=== PATIENT | female | born 1935 | race Two or more races ===

== ENCOUNTER 2018-09-04 00:44 | Inpatient (IN) | payer MEDICARE, OTHER ==
[2018-09-04] VITALS (9 sets, daily range): BP systolic 90–113; BP diastolic 50–76
[~2018-09-04] VITALS: Ht 154.9 cm; Wt 69.5 kg
[~2018-09-04 00:44] MED LIST: AMLODIPINE BESYL5 MG ORAL; ASPIRIN81 MG ORAL; ATORVASTATIN CA20 MG ORAL; AUGMENTIN 875-1 EAC1 ORAL; AZOPT10 ML OP; BRIMONIDINE TART5 ML BOTH EYES; LASIX20 M1 ORAL; LATANOPROST2.5 ML BOTH EYES; LEVOTHYROXINE100 MCG ORAL; PRANDIN2 MG ORAL
--- NOTE | 2018-09-04 00:45 | Emergency Room Report ---
History of Present Illness General Chief Complaint: Generalized Weakness Source: Patient, Family Member Present Illness HPI Patient is an 83-year-old female presented after increased generalized weakness. Patient noted to have prior history of diabetes as well as end-stage renal disease. Patient is normally dialyzed Monday and Monday. Patient was noted to have increased lethargy was noted to have markedly elevated blood sugar by EMS. Patient is was last dialyzed on Monday. She was noted to have increased nonproductive cough Allergies: Coded Allergies: PENICILLINS (Verified Allergy, Intermediate, itching/rash., 10/23/14) Uncoded Allergies: " some kind of antibiotic " (Allergy, Intermediate, generalized itching, ) CODEIN (Allergy, Unknown, 09/04/18) Patient History Past Medical History: see triage record Last Menstrual Period: 4 decades ago Now: No Reviewed Nursing Documentation: PMH: Agreed; PSxH: Agreed Review of Systems All Other Systems: negative except mentioned in HPI Physical Exam Vital Signs Date Time Temp Pulse Resp B/P (MAP) Pulse Ox O2 Delivery O2 Flow Rate FiO2 09/04/18 00:38 99.0 94 16 113/76 97 Room Air Sp02 EP Interpretation: reviewed, normal General Appearance: normal inspection, alert, Chronically Ill Head: atraumatic Eyes: bilateral eye conjunctivae pale ENT: normal ENT inspection, normal voice, dry mucus membranes Neck: normal inspection, no bony tend Respiratory: normal inspection, no respiratory distress, no retraction, wheezing Cardiovascular #1: regular rate, rhythm, no edema Gastrointestinal: normal inspection, normal bowel sounds, non tender, soft, no guarding, no hernia Genitourinary: no CVA tenderness Musculoskeletal: normal inspection, back normal, normal range of motion Neurologic: normal inspection, alert, oriented x3, responsive, speech normal Psychiatric: normal inspection, judgement/insight normal, mood/affect normal Skin: normal inspection, normal color, no rash Procedures Critical Care Time Critical Care Time Patient had a critical medical condition which untreated could potentially result in life or limb threatening injury. Total critical care time excluding procedures approximately 45 minutes. Medical Decision Making Diagnostic Impression: Primary Impression: Sepsis Additional Impressions: ESRD (end stage renal disease) Pleural effusion Uncontrolled diabetes mellitus ER Course Patient presented for generalized weakness. Differential diagnosis included was not limited to anemia, urinary tract infection, electrolyte abnormality, hypothyroidism, myocardial infarction, myasthenia gravis, dehydration, among others. Because of complexity of patient's case laboratory testing and imaging studies were ordered. Patient laboratory studies are notable for normal potassium as well as elevated white blood count and some evidence of anemia. Patient was started on IV antibiotics. patient was noted to have history of chronic renal disease and is currently on dialysis. Patient was noted to have initial hypotension as well as a markedly elevated blood sugar. Patient was started on IV fluids due to hypotension with some improvement. Patient was noted to be markedly lethargic initially and seem to have some improvement after IV hydration. Patient was noted to have chest x-ray with small right- sided pleural effusion and mild cardiomegaly. There appear to be some bilateral infiltrate versus chronic lung disease. Patient was given IV Levaquin due to antibiotic allergies she does not given additional antibiotics at this time. Dr. Garry Correia was contacted for inpatient management due to capitated physician for [facility]. Labs Test 09/04/18 00:40 09/04/18 03:30 09/04/18 09:50 White Blood Count 15.6 K/UL (4.8-10.8) Red Blood Count 3.96 M/UL (4.20-5.40) Hemoglobin 12.4 G/DL (12.0-16.0) Hematocrit 38.2 % (37.0-47.0) Mean Corpuscular Volume 96 FL (80-99) Mean Corpuscular Hemoglobin 31.3 PG (27.0-31.0) Mean Corpuscular Hemoglobin Concent 32.4 G/DL (32.0-36.0) Red Cell Distribution Width 14.2 % (11.6-14.8) Platelet Count 108 K/UL (150-450) Mean Platelet Volume 9.3 FL (6.5-10.1) Neutrophils (%) (Auto) % (45.0-75.0) Lymphocytes (%) (Auto) % (20.0-45.0) Monocytes (%) (Auto) % (1.0-10.0) Eosinophils (%) (Auto) % (0.0-3.0) Basophils (%) (Auto) % (0.0-2.0) Sodium Level 133 MMOL/L (136-145) Potassium Level 4.7 MMOL/L (3.5-5.1) Chloride Level 95 MMOL/L (98-107) Carbon Dioxide Level 27 MMOL/L (21-32) Anion Gap 11 mmol/L (5-15) Blood Urea Nitrogen 79 mg/dL (7-18) Creatinine 6.0 MG/DL (0.55-1.30) Estimat Glomerular Filtration Rate mL/min (>60) Glucose Level 477 MG/DL (74-106) Calcium Level 8.8 MG/DL (8.5-10.1) Total Bilirubin 1.4 MG/DL (0.2-1.0) Direct Bilirubin 1.0 MG/DL (0.0-0.3) Aspartate Amino Transf (AST/SGOT) 43 U/L (15-37) Alanine Aminotransferase (ALT/SGPT) 19 U/L (12-78) Alkaline Phosphatase 204 U/L (46-116) Total Creatine Kinase 245 U/L (26-308) Creatine Kinase MB 2.1 NG/ML (0.0-3.6) Creatine Kinase MB Relative Index 0.8 Pro-B-Type Natriuretic Peptide 05607 pg/mL (0-125) Total Protein 8.8 G/DL (6.4-8.2) Albumin 2.4 G/DL (3.4-5.0) Globulin 6.4 g/dL Albumin/Globulin Ratio 0.4 (1.0-2.7) Lipase 243 U/L (73-393) Troponin I 0.179 ng/mL (0.000-0.056) Lactic Acid Level 1.10 mmol/L (0.66-2.22) EKG Diagnostic Results Rate: normal Rhythm: NSR ST Segments: no acute changes Last Vital Signs Date Time Temp Pulse Resp B/P (MAP) Pulse Ox O2 Delivery O2 Flow Rate FiO2 09/04/18 00:38 99.0 94 16 113/76 97 Room Air Status: improved Disposition: ADMITTED INPATIENT Condition: Selvin Robertson MD Sep 04, 2018 00:44
--- NOTE | 2018-09-04 01:15 | NUR ---
ER Nurse Note: Pt BIBA from home c/o generalziaed weakness. Per EMS, pt has dialysis T,Th,S; AV fistula on left arm. Pt a&ox4, on room air, BP 96/69, no signs of distress. Pt has a non productive cough, has range of motion in extremities. No skin breakdown, no fever. ERMD at pt side; will continue to montior.
[2018-09-04 01:28] LABS: HEMATOCRIT 38.2 % (37.0-47.0); HEMOGLOBIN 12.4 G/DL (12.0-16.0); MEAN CORPUSCULAR VOLUME 96 FL (80-99); PLATELET COUNT 108 K/UL (150-450); RED BLOOD COUNT 3.96 M/UL (4.20-5.40); RED CELL DISTRIBUTION WIDTH 14.2 % (11.6-14.8); WHITE BLOOD COUNT 15.6 K/UL (4.8-10.8)
[2018-09-04 01:42] LABS: ANION GAP 11 mmol/L (5-15); BLOOD UREA NITROGEN 79 mg/dL (7-18); CALCIUM 8.8 MG/DL (8.5-10.1); CARBON DIOXIDE 27 MMOL/L (21-32); CHLORIDE 95 MMOL/L (98-107); POTASSIUM 4.7 MMOL/L (3.5-5.1); SODIUM 133 MMOL/L (136-145)
[2018-09-04] MEDS ORDERED: TRADJENTA5 MG PO (01:48)
[2018-09-04] MEDS ORDERED: ASPIRIN81 MG ORAL (01:49)
[2018-09-04] MEDS ORDERED: FLUTICASONE PRO16 G1 NASAL (01:50)
[2018-09-04 01:58] LABS: ALANINE AMINOTRANSFERASE 19 U/L (12-78); ALBUMIN 2.4 G/DL (3.4-5.0); ALBUMIN/GLOBULIN RATIO 0.4 (1.0-2.7); ALKALINE PHOSPHATASE 204 U/L (46-116); ASPARTATE AMINO TRANSFERASE 43 U/L (15-37); BILIRUBIN,TOTAL 1.4 MG/DL (0.2-1.0); CKMB 2.1 NG/ML (0.0-3.6); CREATINE KINASE 245 U/L (26-308)
[2018-09-04] MEDS ORDERED: Insulin Human Regular 100units/ml 3ml IV ONE (02:00)
[2018-09-04] MEDS ORDERED: Aspirin Baby 81mg ORAL ONE (02:15)
--- NOTE | 2018-09-04 02:16 | NUR ---
ER Nurse Note: Talked to family member about pts allergy; Garry (son), does not know; will inform primary care physcian and nurse when he finds out. ERMD aware. Garry stated "pt is allerigic ot codeine." Contact number night time, Garry Gutierrez ; Jonna Gutierrez , best time to contact is morning/afternoon.
--- NOTE | 2018-09-04 03:00 | NUR ---
ER Nurse Note: Pt alert, VSS, no signs of distress. Pt on RA at 96%. Pt had 1 BM. Pt calm, cooperative. Labs redrawn, recheck accucheck; awaiting orders. All safety measures met; will continue to montior.
--- NOTE | 2018-09-04 04:20 | NUR ---
ER Nurse Note: Report given to CHARO Shoemaker in [place] for continuity of care. Pt a&ox4, VSS, no signs of distress. All orders completed per ERMD orders. All belongings taken.
--- NOTE | 2018-09-04 04:25 | NUR ---
NURSE NOTES: Patient arrived from ER via gurney accompanied by RN and information technology technician. Report received from CHARO Alicia. Patient is alert, verbally responsive, able to make needs known. Denies any pain at this time. No acute respiratory distress is noted in RA. IV to left AC 22 g is intact. AV shun noted to right upper arm and is intact. Bed is in lowest position. Call light is within easy reach while in room. Paged Dr Correia at [phone] to verify orders. Currently awaiting for call back. will continue to monitor.
--- NOTE | 2018-09-04 07:35 | NUR ---
NURSE NOTES: called Amelie, to see if patient require dialysis today. left voicemail. awaiting for call back.
--- NOTE | 2018-09-04 07:36 | NUR ---
HAND-OFF: Report given to Maria Victoria Narvaez RN.
--- NOTE | 2018-09-04 08:10 | NUR ---
NURSE NOTES: received pt in the bed, awake, alert, no co pain, no SOB, skin warn and dry to touch, dressing on sacral dry and intact, tolerate diet well,, AV shunt on RT upper arm, dr. Kinsey saw pt, ordered HD today, called to office spoke with Floridalma, bed in low position, call light within reach.
[2018-09-04] MEDS: Heparin 5000 units/ml inj SUBQ SCH ×2 (09:00→20:38)
[2018-09-04] MEDS: Flonase Nasal Inhaler 16gm NASAL SCH ×2 (09:12→17:31)
[2018-09-04] MEDS: Brimonidine 0.2% Opth Sol BOTH EYES SCH ×2 (09:13→17:32)
[2018-09-04] MEDS: Aspirin Baby 81mg ORAL SCH (09:13)
[2018-09-04] MEDS: Latanoprost 0.005% Opth 2.5ml Soln BOTH EYES SCH ×2 (09:13→17:32)
[2018-09-04] MEDS: Repaglinide 1mg tab ORAL SCH ×3 (09:14→17:34)
--- NOTE | 2018-09-04 10:41 | Diagnostic Imaging Report ---
Indication: Shortness of breath Technique: One view of the chest Comparison: October 23, 2014 Findings: Interim development of bilateral interstitial and airspace edema, left greater than right, and moderate to large right pleural effusion. The heart is enlarged, apparently more so than on the prior exam. Impression: Cardiomegaly with evidence of congestive heart failure and moderate to large right pleural effusion
[2018-09-04] MEDS: NovoLOG Insulin Flexpen SUBQ SCH ×3 (12:27→20:39)
--- NOTE | 2018-09-04 14:16 | Nephrology Progress Note ---
Assessment/Plan Plan [id number] full consult dictated Objective Objective Last 24 Hour Vital Signs Date Time Temp Pulse Resp B/P (MAP) Pulse Ox O2 Delivery O2 Flow Rate FiO2 09/04/18 12:00 98.6 76 20 90/53 (65) 96 09/04/18 09:00 83 104/65 09/04/18 09:00 Room Air 09/04/18 08:00 98.7 83 21 104/65 (78) 96 09/04/18 08:00 82 09/04/18 05:10 Room Air 09/04/18 04:37 85 09/04/18 04:30 98.5 85 98/61 (73) 09/04/18 04:20 98.7 93 16 104/68 97 Room Air 09/04/18 04:00 98.5 88 16 104/68 96 Room Air 09/04/18 02:45 98.8 90 16 96/66 97 Room Air 09/04/18 01:51 98.7 93 16 104/68 97 Room Air 09/04/18 00:50 94 16 Room Air 09/04/18 00:50 99.0 93 16 113/76 97 Room Air 09/04/18 00:38 99.0 94 16 113/76 97 Room Air Intake and Output 09/03/18 09/04/18 19:00 07:00 Intake Total 2150 ml Balance 2150 ml Intake Oral 50 ml IV Total 2100 ml # Voids 1 Laboratory Tests 09/04/18 00:40: White Blood Count 15.6H, Red Blood Count 3.96L, Hemoglobin 12.4, Hematocrit 38.2 , Mean Corpuscular Volume 96, Mean Corpuscular Hemoglobin 31.3H, Mean Corpuscular Hemoglobin Concent 32.4, Red Cell Distribution Width 14.2, Platelet Count 108L, Mean Platelet Volume 9.3, Neutrophils (%) (Auto) , Lymphocytes (%) ( Auto) , Monocytes (%) (Auto) , Eosinophils (%) (Auto) , Basophils (%) (Auto) , Sodium Level 133L, Potassium Level 4.7, Chloride Level 95L, Carbon Dioxide Level 27, Anion Gap 11, Blood Urea Nitrogen 79H, Creatinine 6.0H, Estimat Glomerular Filtration Rate , Glucose Level 477H, Lactic Acid Level 2.00, Calcium Level 8.8, Total Bilirubin 1.4H, Direct Bilirubin 1.0H, Aspartate Amino Transf (AST/SGOT) 43H, Alanine Aminotransferase (ALT/SGPT) 19, Alkaline Phosphatase 204H, Total Creatine Kinase 245, Creatine Kinase MB 2.1, Creatine Kinase MB Relative Index 0.8, Troponin I 0.194H, Pro-B-Type Natriuretic Peptide 07207H, Total Protein 8.8H, Albumin 2.4L, Globulin 6.4, Albumin/Globulin Ratio 0.4L, Lipase 243 09/04/18 03:30: Troponin I 0.179H 09/04/18 09:50: Lactic Acid Level 1.10 Height (Feet): 5 Height (Inches): 1.00 Weight (Pounds): 143 Luann Kinsey MD Sep 04, 2018 14:16
--- NOTE | 2018-09-04 14:49 | NUR ---
CASE MANAGEMENT:REVIEW 83 YR OLD FEMALE BIBA FROM HOME CC: GENERALIZED WEAKNESS PMH: ESRD ON HD SI: SEPSIS 99.0 94 16 96/69 97% ON RA WBC+15.6 BUN+79 CR+6.0 TROPONIN(+) 0.194 GLUCOSE+477 IS: 1L NS BOLUS IV INSULIN ASA PO IV LEVAQUIN BLOOD CX CHEST XRAY : TO STEP DOWN UNIT INTERQUAL CRITERIA MET
[2018-09-04] MEDS ORDERED: Vancomycin 1gm/D5W 275ml IVPB SCH ×4 (15:00→20:00)
--- NOTE | 2018-09-04 15:05 | NUR ---
NURSE NOTES:WOUND CARE NOTES:Pt presented with DTPI R sacrum .Dark indurated area that is tender when minimally palpated (L)2.5cm x (W)1.5cm. Pt also noted to have a red,raised and indurated lump R ischial region(L)4.5cm x (W)5cm.Site is warm to touch and tender when minimally palpated. Per pt she has had pain and swelling at site for 2 months.Both heels are soft but blanchable and non-tender when palpated. Pt's son at bedside and addressed skin findings and preventions being implemented to prevent further skin breakdown. Recommendations:Apply Moisture Barrier paste to buttocks .Cover with Optifoam drsg.Change Q3days and prn. Cover R ischial area with Optifoam pending further instructions. Apply Cavilon to both heels and off-load with pillow. Reposition at least every 2hours or as tolerated.
--- NOTE | 2018-09-04 17:22 | Cardiology Report ---
APPROVED REPORT EKG Measurement Heart [id number] Normal sinus rhythm Left axis deviation Right bundle branch block Inferior infarct, age undetermined T wave abnormality, consider lateral ischemia Abnormal ECG
--- NOTE | 2018-09-04 18:00 | NUR ---
NURSE NOTES: pt on HD now, tolerate well, pt had abscess on buttock, dr. Correia saw pt, consult for gr. Pantoja.
--- NOTE | 2018-09-04 18:59 | NUR ---
NURSE NOTES: Report received from Maria Victoria Cabello RN. Patient seen in bed in semi reaves position getting dialyzed at this time. Patient is alert, verbally responsive, able to make needs known. Denies any pain at this time. IV site is to left AC 22g and is intact. AV shunt to right upper arm is intact. sp02 in RA is 97%. No acute distress is noted at this time. bed is in lowest position. Call light is within easy reach when in bed. Will continue to monitor.
--- NOTE | 2018-09-04 19:06 | NUR ---
HAND-OFF: Report given to LYDIA MANCILLA.
--- NOTE | 2018-09-04 19:15 | Consultation ---
DATE OF CONSULTATION: 09/04/2018 NEPHROLOGY CONSULTATION CONSULTING PHYSICIAN: Luann Kinsey M.D. REFERRING PHYSICIAN: Garry Correia M.D. REASON FOR CONSULTATION: End-stage renal disease, need for dialysis. HISTORY OF PRESENT ILLNESS: This is a pleasant 83-year-old female, known to me with past medical history significant for history of end-stage renal disease, anemia of chronic kidney disease, renal osteodystrophy, history of hypertension, history of peripheral vascular disease, and shortness of breath. She presented to [facility], in emergency room at [place], complaining of generalized weakness. Apparently, the patient was not able to go to dialysis because of increasing lower extremity weakness. The patient was also complaining of increasing nonproductive cough, presented to ER, was admitted, and I was called for management of renal disease and electrolyte imbalance. ALLERGIES: The patient is allergic to codeine and penicillin. SOCIAL HISTORY: She lives at home with her sister. There is no current history of tobacco, alcohol, or drug use. FAMILY HISTORY: Lost her many years ago. Lives with her sister and there is no history of current dialysis on a family member. REVIEW OF SYSTEMS: GENERAL: She complained of generalized weakness. Denies any fever, chills, or night sweats. HEAD AND NECK: Denies any dysphagia, odynophagia, blurry vision, headache, or neck stiffness. PULMONARY: Complained of shortness of breath and nonproductive cough. CARDIOVASCULAR: Denies any chest pain or palpitations. GASTROINTESTINAL: Decreased appetite. No nausea or vomiting. GENITOURINARY: No dysuria. No frequency. No hematuria. MUSCULOSKELETAL: Complained of generalized weakness. Denies any localized weakness or numbness. PHYSICAL EXAMINATION: VITAL SIGNS: The patient has temperature of 98 degrees, blood pressure of 98/61, and pulse rate of 84. HEAD AND NECK: No JVP. No LAD. No thyromegaly. Extraocular movement intact. Pupils are reactive to light and accommodation. LUNGS: Decreased breathing sounds on both sides and also has crackles and rhonchi. CARDIAC: Regular rate and rhythm. S1 and S2. No murmur. No rub. ABDOMEN: Soft, nontender, and nondistended. EXTREMITIES: No edema. No clubbing. No cyanosis. LABORATORY AND DIAGNOSTIC DATA: The patient had WBC count of 15.6, hemoglobin of 12.4, hematocrit of 38, and platelet count of 108,000. Chemistry revealed sodium 133, potassium 4.7, 95 chloride, 27 bicarb, BUN of 79, creatinine of 6, and glucose of 477. Total bilirubin of 1.4. Creatinine of 1.4. AST of 43, ALT of 19, and alkaline phosphatase of 204. Troponin is 0.194. BNP of 27,199. Total protein of 8.4. Albumin of 2.4. Chest x-ray revealed cardiomegaly with congestive heart failure and rcorettn-op-[id number] right pleural effusion. ASSESSMENT: 1. End-stage renal disease. 2. Anemia of chronic kidney disease. 3. Renal osteodystrophy. 4. Hypertension. 5. Diabetes. 6. Pleural effusion. PLAN: Plan for the patient is to schedule for patient to receive dialysis. I would continue with Epogen for anemia of chronic kidney disease. I will check the calcium, phosphorous, and PTH for evaluation of renal osteodystrophy. I would monitor electrolytes closely and check the prealbumin level for nutritional evaluation. Again, I would like to thank, Dr. Correia, for allowing me to participate in the care of this patient. Luann Kinsey M.D. DR: BRICE JOB#: [id number] CC:
--- NOTE | 2018-09-04 19:44 | NUR ---
NURSE NOTES: Patient completed dialysis , 2Liters was removed. patient stable at this time.
[2018-09-04] MEDS ORDERED: Cefepime HCl 1 GM in D5W 55 ML IVPB SCH (20:00)
[2018-09-05] VITALS: BP 85/51
--- NOTE | 2018-09-05 00:30 | History and Physical Report ---
DATE OF ADMISSION: 09/04/2018 HISTORY OF PRESENT ILLNESS: This is an 83-year-old female with end-stage renal disease, on hemodialysis who presented to the emergency room with generalized weakness, increasing fatigue, and a nonproductive cough. Her symptoms preventing her from going to dialysis because of the results of her not being strong enough. She has not had any fevers or chills and has not been exposed to any ill contacts that she is aware of. PAST MEDICAL HISTORY: End-stage renal disease, renal osteodystrophy, hypertension, peripheral artery disease, anemia of chronic kidney disease, type 2 diabetes mellitus. ALLERGIES: Codeine and penicillin. SOCIAL HISTORY: Negative for smoking, alcohol, or substance abuse. FAMILY HISTORY: Noncontributory. MEDICATIONS: Reviewed and reconciled. REVIEW OF SYSTEMS: No loss of vision. No hearing difficulty. No night sweats, fevers, or chills. She has had a nonproductive cough and shortness of breath. No history of abnormal blood clotting. There is no history of myocardial infarction. She does have hypertension. She is on dialysis three times a week. No history of thyroid disorder or dyslipidemia. No history of seizure or stroke. She has not had any change in bowel habits. PHYSICAL EXAMINATION: VITAL SIGNS: Afebrile, blood pressure 98/61, pulse 84, respirations 18. HEENT: Conjunctivae pink. Sclerae anicteric. Oropharynx clear. Mucous membranes dry. NECK: Supple. Jugular venous pressure normal. LUNGS: Coarse breath sounds. Rhonchi and rales. CARDIAC: Regular rhythm and rate. Normal S1, S2 with a fourth heart sound. No murmur. ABDOMEN: Soft, nontender. EXTREMITIES: No edema. There is a firm area below the right buttock that appears to be possible abscess or hematoma. LABORATORY DATA: White count 15.6, hemoglobin 12.4. Albumin 2.4. Troponin 0.194. Natriuretic peptide 27,000. Chest x-ray with cardiomegaly and congestive heart failure and [id number] right pleural effusion. Glucose 477. IMPRESSION: 1. Probable sepsis. 2. Possible pneumonia. 3. Possible abscess, right buttock. 4. End-stage renal disease. 5. Hypertensive heart disease. 6. Pleural effusion. 7. Diabetes mellitus with complications. 8. Acute myocardial ischemia and possible non-ST elevation infarction. 9. Acute on chronic diastolic congestive heart failure. PLAN: 1. Empiric antibiotics. 2. Surgical evaluation. 3. Pulmonary evaluation. 4. Possible thoracentesis. 5. Renal evaluation for dialysis. 6. Possible drainage of abscess site. 7. Serial troponin levels. Garry Correia M.D. DR: JEROME JOB#: [id number] CC:
[2018-09-05 04:00] VITALS: BP 83/48
[2018-09-05] MEDS: NovoLOG Insulin Flexpen SUBQ SCH ×4 (05:50→20:38)
--- NOTE | 2018-09-05 06:00 | NUR ---
NURSE NOTES: blood sugar 55 at 0545. dextrose 50% full syringe given. rechecked blood sugar in 15 min and blood sugar is 173. patient is alert, verbally responsive able to make needs known.
--- NOTE | 2018-09-05 07:20 | NUR ---
HAND-OFF: Report given to CHARO Fishman .
--- NOTE | 2018-09-05 07:21 | NUR ---
NURSE NOTES: RECEIVED PATIENT FROM Kaylen FREEMAN RN. PATIENT IS LYING IN BED, AWAKE, ALERT AND ORIENTED. HOOKED TO SALES MANAGEMENT INTERN. ON ROOM AIR. NO SIGNS OF DISTRESS. R AV SHUNT FOR DIALYSIS. IV L AC G22, SL. SIDE RAILS UP. BED AT LOWEST POSITION. CALL LIGHT WITHIN ERACH. WILL CONTINUE TO MONITOR.
[2018-09-05 08:00] VITALS: BP 94/56
[2018-09-05] MEDS: Aspirin Baby 81mg ORAL SCH (08:52)
[2018-09-05] MEDS: Repaglinide 1mg tab ORAL SCH ×3 (08:52→18:00)
[2018-09-05] MEDS: Latanoprost 0.005% Opth 2.5ml Soln BOTH EYES SCH ×2 (08:55→18:07)
[2018-09-05] MEDS: Flonase Nasal Inhaler 16gm NASAL SCH ×2 (08:55→18:00)
[2018-09-05] MEDS: Heparin 5000 units/ml inj SUBQ SCH ×2 (08:55→20:37)
[2018-09-05] MEDS: Brimonidine 0.2% Opth Sol BOTH EYES SCH ×2 (08:55→18:07)
[2018-09-05] MEDS: TRADJENTA 5 MG ORAL SCH (09:00)
--- NOTE | 2018-09-05 10:49 | Nephrology Progress Note ---
Assessment/Plan Assessment 1. End-stage renal disease. 2. Anemia of chronic kidney disease. 3. Renal osteodystrophy. 4. Hypertension. 5. Diabetes. 6. Pleural effusion. Plan continue iv antibiotic dialysis as schedule continue epogen PT/OT thoracocentesis Subjective Constitutional: Reports: no symptoms HEENT: Reports: no symptoms Neurologic/Psychiatric: Reports: no symptoms Subjective alert and awake had dialysis yesterday feeling better sister is on her bedside Objective Objective Last 24 Hour Vital Signs Date Time Temp Pulse Resp B/P (MAP) Pulse Ox O2 Delivery O2 Flow Rate FiO2 09/05/18 08:55 86 94/56 09/05/18 08:00 98.6 86 30 94/56 (69) 97 09/05/18 04:00 99.0 87 20 83/48 (60) 97 09/05/18 04:00 Room Air 09/05/18 03:25 88 09/05/18 00:00 98.1 89 24 85/51 (62) 98 09/05/18 00:00 Room Air 09/04/18 23:30 89 09/04/18 21:00 Room Air 09/04/18 20:00 98.5 80 24 90/50 (63) 97 09/04/18 19:59 78 09/04/18 16:00 99.4 85 20 94/68 (77) 100 09/04/18 16:00 83 09/04/18 12:00 98.6 76 20 90/53 (65) 96 09/04/18 12:00 75 Intake and Output 09/04/18 09/05/18 19:00 07:00 Intake Total 320 ml 430.562 ml Output Total 2000 ml Balance 320 ml -1569.438 ml Intake Oral 320 ml 100 ml IV Total 330.562 ml Output Hemodialysis UF 2000 ml # Bowel Movements 1 2 Height (Feet): 5 Height (Inches): 1.00 Weight (Pounds): 154 Objective EAD AND NECK: No JVP. No LAD. No thyromegaly. Extraocular movement intact. Pupils are reactive to light and accommodation. LUNGS: Decreased breathing sounds on both sides and also has crackles and rhonchi. CARDIAC: Regular rate and rhythm. S1 and S2. No murmur. No rub. ABDOMEN: Soft, nontender, and nondistended. EXTREMITIES: No edema. No clubbing. No cyanosis. Luann Kinsey MD Sep 05, 2018 10:49
--- NOTE | 2018-09-05 11:15 | NUR ---
CASE MANAGEMENT:REVIEW 09/05/18 SI: SEPSIS. PNA. AMI. AC/CHR CHF 98.6 86 30 94/56 97% ON RA LAST TROPONIN(+) 0.179 IS: IV CEFEPIME Q24 NORVASC PO QD ASA PO QD PRANDIN PO TID HEPARIN SQ Q12 SYNTHROID PO QD : STEP DOWN UNIT DCP: FROM HOME
[2018-09-05 12:00] VITALS: BP 90/56
[2018-09-05] MEDS ORDERED: Lidocaine 1% 10mg/ml/Epi 0.005mg/ml 30ml vial INJ SCH (15:00)
--- NOTE | 2018-09-05 15:00 | NUR ---
NURSE NOTES: INCISION AND DRAINING WAS DONE BY DR PABLO. SPECIMEN SAMPLE SENT TO LAB. PACKED WITH DRY DRESSING. NO SIGNS OF DISTRESS. WILL CONTINUE TO MONITOR.
--- NOTE | 2018-09-05 15:02 | Consultation ---
History of Present Illness General Date patient seen: Sep 05, 2018 Reason for Hospitalization: Generalized Weakness Present Illness HPI 83 year old female with multiple medical comorbidities who presented to [facility] with fatigue and weakness. Admitted for medical care and management. On admission noted to have right inferior buttock area of fluctuance with induration. Tender on palpation. States has been worsening for 2 months. Surgery called to evaluate. patient seen, chart reviewed, patient examined. Allergies: Coded Allergies: PENICILLINS (Verified Allergy, Intermediate, itching/rash., 10/23/14) Uncoded Allergies: " some kind of antibiotic " (Allergy, Intermediate, generalized itching, ) CODEIN (Allergy, Unknown, 09/04/18) Medication History Scheduled Amlodipine Besylate* (Amlodipine Besylate*), 5 MG ORAL DAILY, (Reported) Aspirin* (Aspirin*), 81 MG ORAL DAILY, (Reported) Atorvastatin Calcium* (Atorvastatin Calcium*), 10 MG ORAL BEDTIME, (Reported) Brimonidine Tartrate* (Alphagan*), 1 DROP BOTH EYES BID, (Reported) Brinzolamide (Azopt), 1 DRP OP BID, (Reported) Fluticasone Propionate* (Fluticasone Propionate*), 1 SPRAY NASAL DAILY, ( Reported) Latanoprost* (Xalatan*), 1 DROP BOTH EYES BID, (Reported) Levothyroxine Sodium* (Levothyroxine Sodium*), 100 MCG ORAL DAILY, (Reported) Linagliptin (Tradjenta), 5 MG PO DAILY, (Reported) Repaglinide (Prandin), 2 MG ORAL TID, (Reported) Patient History History Provided By: Patient, Medical Record, PMD Healthcare decision maker Resuscitation status Full Code Advanced Directive on File No Past Medical/Surgical History Past Medical/Surgical History: (1) Raynaud disease (2) Raynaud disease (3) Episode of generalized weakness (4) Sepsis (5) Uncontrolled diabetes mellitus (6) Pleural effusion (7) ESRD (end stage renal disease) Review of Systems Review of Symptoms General ROS: no weight loss or fever Psychological ROS: no depression or mood changes, no memory loss Ophthalmic ROS: no visual changes or eye irritation ENT ROS: no nasal congestion, hearing loss, dizziness Allergy and Immunology ROS: no allergic symptoms or urticaria Hematological and Lymphatic ROS: no swollen glands, unusual bleeding or bruising Endocrine ROS: no polyuria, polydipsia, weight changes, temperature intolerance Respiratory ROS: no cough, shortness of breath, or wheezing Cardiovascular ROS: no chest pain or dyspnea on exertion Gastrointestinal ROS: denies abdominal pain, bright red blood in stool. Musculoskeletal ROS: no myalgias or arthralgias Neurological ROS: no TIA or stroke symptoms Dermatological ROS: no new or changing skin lesions, rashes or pruritis Physical Exam Physical Exam General appearance: alert, cooperative, no distress, appears stated age Head: Normocephalic, without obvious abnormality, atraumatic Eyes: conjunctivae/corneas clear. PERRL, EOM's intact. Fundi benign Throat: Lips, mucosa, and tongue normal. Teeth and gums normal Neck: supple, symmetrical, trachea midline, no adenopathy, thyroid: not enlarged, symmetric, no tenderness/mass/nodules, no carotid bruit and no JVD Lungs: clear to auscultation bilaterally Heart: regular rate and rhythm, S1, S2 normal, no murmur, click, rub or gallop Abdomen: soft, non-tender. Bowel sounds normal. No masses, no organomegaly Extremities: extremities normal, atraumatic, no cyanosis or edema Pulses: 2+ and symmetric Skin: Skin color, texture, turgor normal. No rashes or lesions Neurologic: Grossly normal Last 24 Hour Vital Signs Date Time Temp Pulse Resp B/P (MAP) Pulse Ox O2 Delivery O2 Flow Rate FiO2 09/05/18 12:00 99.0 83 26 90/56 (67) 98 09/05/18 11:27 84 09/05/18 08:55 86 94/56 09/05/18 08:00 98.6 86 30 94/56 (69) 97 09/05/18 08:00 Room Air 09/05/18 08:00 84 09/05/18 04:00 99.0 87 20 83/48 (60) 97 09/05/18 04:00 Room Air 09/05/18 03:25 88 09/05/18 00:00 98.1 89 24 85/51 (62) 98 09/05/18 00:00 Room Air 09/04/18 23:30 89 09/04/18 21:00 Room Air 09/04/18 20:00 98.5 80 24 90/50 (63) 97 09/04/18 19:59 78 09/04/18 16:00 99.4 85 20 94/68 (77) 100 09/04/18 16:00 83 Intake and Output 09/04/18 09/05/18 19:00 07:00 Intake Total 320 ml 430.562 ml Output Total 2000 ml Balance 320 ml -1569.438 ml Intake Oral 320 ml 100 ml IV Total 330.562 ml Output Hemodialysis UF 2000 ml # Bowel Movements 1 2 Height (Feet): 5 Height (Inches): 1.00 Weight (Pounds): 159 Medications Current Medications Medications (Trade) Dose Ordered Sig/Olayinka Route PRN Reason Start Time Stop Time Status Last Admin Dose Admin Amlodipine Besylate (Norvasc) 5 mg DAILY ORAL 09/04/18 09:00 10/04/18 08:59 Aspirin (ASA) 81 mg DAILY ORAL 09/04/18 09:00 10/04/18 08:59 09/05/18 08:52 Atorvastatin Calcium (Lipitor) 10 mg BEDTIME ORAL 09/04/18 21:00 10/04/18 20:59 09/04/18 20:39 Brimonidine Tartrate (Alphagan) 1 drop BID BOTH EYES 09/04/18 09:00 10/04/18 08:59 09/05/18 08:55 Cefepime HCl 1 gm/ Dextrose 55 ml @ 110 mls/hr Q24H IVPB 09/04/18 20:00 09/11/18 19:59 09/04/18 20:13 Dextrose (Dextrose 50%) 25 ml Q30M PRN IV Hypoglycemia 09/04/18 07:45 10/04/18 07:44 Dextrose (Dextrose 50%) 50 ml Q30M PRN IV Hypoglycemia 09/04/18 07:45 10/04/18 07:44 09/05/18 05:46 Fluticasone Propionate (Flonase) 1 spray TWICE A DAY NASAL 09/04/18 09:00 10/04/18 08:59 09/05/18 08:55 Heparin Sodium (Porcine) (Heparin 5000 units/ml) 5,000 units EVERY 12 HOURS SUBQ 09/04/18 09:00 10/04/18 08:59 09/04/18 20:38 Insulin Aspart (NovoLOG) NOVOLOG INSULIN BEFORE MEALS AND HS SUBQ 09/04/18 11:30 10/04/18 11:29 09/04/18 20:39 Latanoprost (Xalatan) 1 drop BID BOTH EYES 09/04/18 09:00 10/04/18 08:59 09/05/18 08:55 Levothyroxine Sodium (Synthroid) 100 mcg ACBREAKFAST ORAL 09/04/18 06:30 10/04/18 06:29 09/05/18 05:50 Lidocaine/ Epinephrine (Xylocaine 1%/ Epi MPF 30ml) 30 ml ONCE INJ 09/05/18 15:00 09/05/18 17:00 Patient Own Medication (Patient's Own Med) 1 ea DAILY ORAL 09/05/18 09:00 10/05/18 08:59 Repaglinide (Prandin) 2 mg TID ORAL 09/04/18 09:00 10/04/18 08:59 09/05/18 12:20 Vancomycin HCl (Vanco rx to dose) 1 ea DAILY PRN MISC Per rx protocol 09/05/18 10:45 10/05/18 10:44 Assessment/Plan Problem List: (1) Abscess of buttock, right Assessment & Plan: 83F with chronic right buttock abscess. 3cm x 4cm with raised induration and central fluctuance. warm, tender, erythema. no drainage. consent obtained from patient for I&D after all risks, benefits, and alteratives discussed. Procedure- patient made comfortable. abscess site cleaned with alcohol and iodine swabs. 1% lido with epi infiltrated. a #10 scalpel used to make incision at apex of fluctuance. 10cc pus evacuated. cultures taken. underlying tissue with sloth from chronicity. some debridement done. wound cleansed. gauze packing and dressing applied. patient tolerated well -packing and dressing to right buttock wound TID -IV abx will follow with recs thank you ICD Codes: L02.31 - Cutaneous abscess of buttock SNOMED: 17100927 (2) Sepsis ICD Codes: A41.9 - Sepsis, unspecified organism SNOMED: 15061487 Tavon Valencia Sep 05, 2018 15:02
--- NOTE | 2018-09-05 15:13 | NUR ---
RD ASSESSMENT & RECOMMENDATIONS SEE CARE ACTIVITY FOR COMPLETE ASSESSMENT DAILY ESTIMATED NEEDS: Needs based on Wound, HD/ 53kg abw 25-30 kcals/kg 6205-9787 total kcals 1.25-1.8 g protein/kg 66-95 g total protein 20-22 mL/kg 4605-6114 total fluid mLs NUTRITION DIAGNOSIS: * Increased prot intake needs R/T wound healing, renal dysfunction as evidenced by admitted w/ DTPI wound @ R sacrum and ESRD dx, on HD. * Altered nutrition related lab values R/T diabetes, ESRD as evidenced by elev BG (477), POC glu (169-334), elev BNP (25289), low Na (133), elev creat (6.0) CURRENT DIET:CARDIAC, RENAL/ Full Liquid PO DIET RECOMMENDATIONS: CCHO LOW, RENAL/ texture as tolerated ADDITIONAL RECOMMENDATIONS: * Obtain dry wt post HD * Add Dexter 1pkt BID and Nephrovite x 1 for wound healing. * A1C for eval of glycemic control * 1 carb/high prot snacks TID in b/w meals * Monitor lytes and renal fxn.
--- NOTE | 2018-09-05 15:24 | Infectious Diseases Prog Note ---
Assessment/Plan Assessment/Plan Full consult dictated: A) 1) gram + bacteremia, sepsis, leukocytosis, ? source, ? sbe, no central line , + fistula 2) pmh noted 3) allergies - pcn 4) sacral wound with gram neg - ? infected, surgery following P) 1) vancomycin and cefepime 2) check blood cultures, wound culture, labs and chest -x-ray 3) check echo, consider CT scan and wbc scan 4) d/w Dr. Anthony 5) thank you Subjective Allergies: Coded Allergies: PENICILLINS (Verified Allergy, Intermediate, itching/rash., 10/23/14) Uncoded Allergies: " some kind of antibiotic " (Allergy, Intermediate, generalized itching, ) CODEIN (Allergy, Unknown, 09/04/18) Objective Vital Signs Last 24 Hour Vital Signs Date Time Temp Pulse Resp B/P (MAP) Pulse Ox O2 Delivery O2 Flow Rate FiO2 09/05/18 12:00 99.0 83 26 90/56 (67) 98 09/05/18 11:27 84 09/05/18 08:55 86 94/56 09/05/18 08:00 98.6 86 30 94/56 (69) 97 09/05/18 08:00 Room Air 09/05/18 08:00 84 09/05/18 04:00 99.0 87 20 83/48 (60) 97 09/05/18 04:00 Room Air 09/05/18 03:25 88 09/05/18 00:00 98.1 89 24 85/51 (62) 98 09/05/18 00:00 Room Air 09/04/18 23:30 89 09/04/18 21:00 Room Air 09/04/18 20:00 98.5 80 24 90/50 (63) 97 09/04/18 19:59 78 09/04/18 16:00 99.4 85 20 94/68 (77) 100 09/04/18 16:00 83 Height (Feet): 5 Height (Inches): 1.00 Weight (Pounds): 159 Microbiology Date/Time Source Procedure Growth Status 09/04/18 00:55 Blood Blood Culture - Preliminary Resulted 09/04/18 00:40 Blood Blood Culture - Preliminary Resulted 09/04/18 05:30 Wound Gram Stain - Final Resulted 09/04/18 05:30 Wound Culture - Preliminary Gram Negative Bacillus 1 Resulted 09/04/18 01:02 Nasal Nares Influenza Types A,B Antigen (AYSHA) - Final Complete 09/04/18 00:40 Rectum Received Current Medications Medications (Trade) Dose Ordered Sig/Olayinka Route PRN Reason Start Time Stop Time Status Last Admin Dose Admin Amlodipine Besylate (Norvasc) 5 mg DAILY ORAL 09/04/18 09:00 10/04/18 08:59 Aspirin (ASA) 81 mg DAILY ORAL 09/04/18 09:00 10/04/18 08:59 09/05/18 08:52 Atorvastatin Calcium (Lipitor) 10 mg BEDTIME ORAL 09/04/18 21:00 10/04/18 20:59 09/04/18 20:39 Brimonidine Tartrate (Alphagan) 1 drop BID BOTH EYES 09/04/18 09:00 10/04/18 08:59 09/05/18 08:55 Cefepime HCl 500 mg/Dextrose 55 ml @ 110 mls/hr Q24H IV 09/05/18 20:00 09/12/18 19:59 Dextrose (Dextrose 50%) 25 ml Q30M PRN IV Hypoglycemia 09/04/18 07:45 10/04/18 07:44 Dextrose (Dextrose 50%) 50 ml Q30M PRN IV Hypoglycemia 09/04/18 07:45 10/04/18 07:44 09/05/18 05:46 Fluticasone Propionate (Flonase) 1 spray TWICE A DAY NASAL 09/04/18 09:00 10/04/18 08:59 09/05/18 08:55 Heparin Sodium (Porcine) (Heparin 5000 units/ml) 5,000 units EVERY 12 HOURS SUBQ 09/04/18 09:00 10/04/18 08:59 09/04/18 20:38 Insulin Aspart (NovoLOG) NOVOLOG INSULIN BEFORE MEALS AND HS SUBQ 09/04/18 11:30 10/04/18 11:29 09/04/18 20:39 Latanoprost (Xalatan) 1 drop BID BOTH EYES 09/04/18 09:00 10/04/18 08:59 09/05/18 08:55 Levothyroxine Sodium (Synthroid) 100 mcg ACBREAKFAST ORAL 09/04/18 06:30 10/04/18 06:29 09/05/18 05:50 Lidocaine/ Epinephrine (Xylocaine 1%/ Epi MPF 30ml) 30 ml ONCE INJ 09/05/18 15:00 09/05/18 17:00 Patient Own Medication (Patient's Own Med) 1 ea DAILY ORAL 09/05/18 09:00 10/05/18 08:59 Repaglinide (Prandin) 2 mg TID ORAL 09/04/18 09:00 10/04/18 08:59 09/05/18 12:20 Vancomycin HCl (Vanco rx to dose) 1 ea DAILY PRN MISC Per rx protocol 09/05/18 10:45 10/05/18 10:44 Cristopher Helton MD Sep 05, 2018 15:24
--- NOTE | 2018-09-05 15:31 | NUR ---
NURSE NOTES: WOUND CARE FOLLOW-UP NOTES: I and D of Abscess done at bedside by . Dry gauze packing in place. Pt tolerated procedure well.
[2018-09-05 16:00] VITALS: BP 95/58
--- NOTE | 2018-09-05 16:49 | Cardiology Report ---
APPROVED REPORT EXAM: Two-dimensional and M-mode echocardiogram with Doppler and color Doppler. M-Mode DIMENSIONS IVSd1.3 (0.7-1.1cm)Left Atrium (MM)3.5 (1.6-4.0cm) LVDd4.8 (3.5-5.6cm)Aortic Root3.1 (2.0-3.7cm) PWd1.2 (0.7-1.1cm)Aortic Cusp Exc.1.6 (1.5-2.0cm) IVSs1.7 cm LVDs4.0 (2.5-4.0cm) PWs1.2 cm Global left ventricular hypokinesis. Mild left ventricular enlargement . Left ventricular ejection fraction estimated to be 20-25 %. Mild left ventricular hypertrophy. No evidence of pericardial effusion. All other cardiac chamber sizes are within normal limits. Focal aortic valve sclerosis with adequate cusp excursion. Thickened mitral valve leaflets with normal excursion. Mitral annulus and aortic root calcification. Pulmonic valve not well visualized. Normal tricuspid valve structure. IVC dilated at 2.6cm without physiologic collapse suggestive of increased RA pressure. No discrete vegetations seen, however SBE may not be excluded by transthoracic 2-D echo. Consider GEETA if clinically indicated. A color flow and spectral Doppler study was performed and revealed: Trace aortic insufficiency. Moderate mitral regurgitation. Mitral inflow velocities indicates possible pseudo normalization pattern implying moderately elevated left atrial pressure (Grade II ). Mild to moderate tricuspid regurgitation. Tricuspid systolic velocities suggests peak right ventricular systolic pressure of 68 mmHg,consistent with severe pulmonary hypertension .
--- NOTE | 2018-09-05 18:00 | NUR ---
NURSE NOTES: PATIENT KEPT CLEAN AND DRY. NO SIGNS OF DISTRESS. WILL CONTINUE TO MONITOR.
--- NOTE | 2018-09-05 18:00 | Consultation ---
DATE OF CONSULTATION: 09/05/2018 INFECTIOUS DISEASE CONSULTATION: CONSULTING PHYSICIAN: Cristopher Helton M.D. ATTENDING PHYSICIAN: Garry Correia M.D. REFERRING PHYSICIAN: Garry Correia M.D. REASON FOR CONSULTATION: Gram-positive bacteremia, sepsis. CHIEF COMPLAINT: The patient's chief complaint coming in to the hospital is sepsis. HISTORY OF PRESENT ILLNESS: This is a very pleasant 83-year-old female with history of end-stage renal disease, on hemodialysis. She has no central line. She has a right arm fistula. The patient presented with sepsis. She had elevated white count. She presented to [facility] with sepsis and elevated white count. Infectious Disease consultation requested for antibiotic management. The patient is currently on Vanco and cefepime. She had a right buttock abscess that was drained. Again, blood cultures gram-positive organisms, identification is pending. MAR was noted. Orders were noted. Notes were reviewed. The patient will be continued on Vanco and cefepime for now. REVIEW OF SYSTEMS: CONSTITUTIONAL: She has generalized fatigue. No fevers or chills. No focal weakness. HEAD AND NECK: No head pain or neck pain. CARDIAC: No chest pain. GASTROINTESTINAL: No nausea, vomiting, or diarrhea. GENITOURINARY: She has no Diaz. She has hemodialysis right arm fistula. PULMONARY: No congestion or shortness of breath. SKIN: No rash or itching. She had right buttock pain and abscess, status post incision and drainage. EXTREMITIES: No extremity pain. NEUROLOGIC: Seizures. PAST MEDICAL HISTORY: Includes the following: History of hypertension, history of peripheral artery disease, history of anemia, chronic kidney disease, history of diabetes type 2 or diabetes mellitus, renal osteodystrophy, end-stage renal disease, hemodialysis, and right arm fistula. History of hyperlipidemia and hypothyroidism. ALLERGIES: Include codeine and penicillin. She tolerates cefepime. FAMILY HISTORY: Noncontributory. SOCIAL HISTORY: Negative for smoking, alcohol, or drug abuse. MEDICATIONS: Upon reviewing the MAR, she is on following medications. She is on cefepime, Vanco. She is on Lipitor. She is on NovoLog insulin. She is on latanoprost or Xalatan, amlodipine, aspirin, Alphagan, Prandin, heparin, levothyroxine. Outside medications noted and reconciliated. PHYSICAL EXAMINATION: VITAL SIGNS: Temperature is 99.0, pulse rate 82, respiratory 26, blood pressure 90/56, saturation 98%. Pulse rate has been as high as 93. GENERAL: Alert, responsive, no acute distress. She is alert and oriented x3. HEAD AND NECK: Oral exam, no thrush. Eye exam, no icterus. Neck is supple. No JVD. Normocephalic. HEART: Regular. No gallop or murmur. No friction rub. ABDOMEN: Soft. Positive bowel sounds. Nontender. LUNGS: Fairly clear bilaterally. Maybe occasional rhonchi and crackles. No obvious rales. SKIN: No rash or dermatitis. Her sacral wound was covered. It was reviewed. Does not look acutely infected. Again, she had a right buttock abscess, status post I and D. MUSCULOSKELETAL: No effusion. Legs without cellulitis. PERIPHERAL VASCULAR: No cyanosis. She had a right buttock abscess, status post I and D. She has right arm fistula without any cellulitis. She has no other central line. She has peripheral IVs. NEUROLOGIC: Intact, nonfocal, alert, and oriented. GENITOURINARY: No CVA tenderness. LABORATORY AND DIAGNOSTIC DATA: As follows: The patient's white count 15.6, hemoglobin 12.4. The patient's creatinine is 6.0. LFTs were noted. Cultures, blood cultures grew out gram-positive organisms at least 3 bottles with gram-positive cocci in clusters. Wound culture has gram-negative organism, not sure where this is from, could be the sacral wound, but I am not sure. IMAGING STUDIES: Chest x-ray showed pulmonary vascular congestion, cardiomegaly with CHF. ASSESSMENT AND PLAN: 1. The patient has gram-positive bacteremia, sepsis, elevated white count, SIRS criteria. Most likely source is right buttock abscess. The patient is status post incision and drainage of right buttock abscess. Continue Vanco and cefepime for sepsis, gram-positive bacteremia, right buttock abscess. Follow up on cultures, labs, x-rays, surveillance blood cultures, identification blood cultures, cultures of the abscess. The patient has a right arm fistula, but it is unlikely the source of sepsis. We will also get an echocardiogram in addition to followup labs. Continue Vanco and cefepime for sepsis, gram-positive bacteremia. Right buttock abscess again status I and D. 2. End-stage renal disease. Hemodialysis. 3. Hyperlipidemia. 4. Hypothyroidism. 5. Diabetes. 6. Hypertension. 7. Blood sugar, blood pressure treatment per primary for hypertension and diabetes. 8. Right arm fistula. 9. Peripheral artery disease. 10. Anemia of chronic kidney disease. 11. Renal osteodystrophy. 12. Allergy to codeine, penicillin, tolerates cefepime. 13. Social history negative. 14. Family history noncontributory. 15. MAR was noted. 16. Case discussed with RN. 17. Continue treatment per primary consultants. Cristopher Helton M.D. DR: BERTHA JOB#: [id number] CC:
--- NOTE | 2018-09-05 18:04 | Consultation ---
Consult Note Assessment/Plan Full Consult to follow Hold off on thoracentesis given minimal symptoms Cristian Haung MD Sep 05, 2018 18:04
--- NOTE | 2018-09-05 19:23 | NUR ---
HAND-OFF: Report given to Kaylen Caro RN.
--- NOTE | 2018-09-05 19:24 | NUR ---
NURSE NOTES: Report received from CHARO Fishman. Patient seen in bed resting with 2 family members by bedside. Alert, verbally responsive, able to make needs known. spo2 is 96% in RA, no acute respiratory distress is noted. denies any pain at this time. Av shunt to right upper arm is in tact. bruit and thrill present. Left AC Iv site is intact. Bed is in lowest position. Call light is within easy reach while in room. will continue to monitor.
[2018-09-05 20:00] VITALS: BP 88/47
[2018-09-05] MEDS: Cefepime HCl 500 MG in D5W 55 ML IV SCH (20:38)
--- NOTE | 2018-09-05 21:25 | NUR ---
NURSE NOTES: at 8035, blood sugar is 51 50% dextrose given IV 8, 15 min later, blood sugar is 146. Patient is alert, oriented, able to make needs known. Stable at this time. Will continue to monitor.
[2018-09-06] VITALS: BP 85/53
[2018-09-06 04:00] VITALS: BP 90/55
[2018-09-06 05:02] LABS: HEMATOCRIT 32.2 % (37.0-47.0); HEMOGLOBIN 10.6 G/DL (12.0-16.0); MEAN CORPUSCULAR VOLUME 97 FL (80-99); PLATELET COUNT 64 K/UL (150-450); RED BLOOD COUNT 3.31 M/UL (4.20-5.40); RED CELL DISTRIBUTION WIDTH 14.1 % (11.6-14.8); WHITE BLOOD COUNT 17.7 K/UL (4.8-10.8)
[2018-09-06 05:32] LABS: ALANINE AMINOTRANSFERASE 25 U/L (12-78); ALBUMIN 1.9 G/DL (3.4-5.0); ALBUMIN/GLOBULIN RATIO 0.4 (1.0-2.7); ALKALINE PHOSPHATASE 148 U/L (46-116); ANION GAP 11 mmol/L (5-15); ASPARTATE AMINO TRANSFERASE 58 U/L (15-37); BILIRUBIN,TOTAL 2.3 MG/DL (0.2-1.0); BLOOD UREA NITROGEN 62 mg/dL (7-18); CALCIUM 7.8 MG/DL (8.5-10.1); CARBON DIOXIDE 25 MMOL/L (21-32); CHLORIDE 99 MMOL/L (98-107); CREATININE 5.5 MG/DL (0.55-1.30); POTASSIUM 3.8 MMOL/L (3.5-5.1); SODIUM 135 MMOL/L (136-145)
[2018-09-06 05:34] LABS: BILIRUBIN,DIRECT 1.7 MG/DL (0.0-0.3)
[2018-09-06] MEDS: NovoLOG Insulin Flexpen SUBQ SCH ×4 (06:30→21:56)
--- NOTE | 2018-09-06 07:07 | NUR ---
HAND-OFF: Report given to Sravanthi.
--- NOTE | 2018-09-06 07:08 | NUR ---
NURSE NOTES: RECEIVED PATIENT FROM Kaylen FREEMAN RN. PATIENT IS LYING IN BED, AWAKE, ALERT AND ORIENTED. HOOKED TO [employer]ER. ON ROOM AIR. NO SIGNS OF DISTRESS. R AV SHUNT FOR DIALYSIS. IV L AC G22, SL. SIDE RAILS UP. BED AT LOWEST POSITION. CALL LIGHT WITHIN REACH. WILL CONTINUE TO MONITOR.
[2018-09-06 08:00] VITALS: BP 100/70
[2018-09-06] MEDS ORDERED: Vancomycin 1gm/D5W 275ml IVPB ONE ×2 (08:00)
[2018-09-06] MEDS: Flonase Nasal Inhaler 16gm NASAL SCH ×2 (09:00→18:11)
[2018-09-06] MEDS: Heparin 5000 units/ml inj SUBQ SCH ×2 (09:00→21:00)
[2018-09-06] MEDS: TRADJENTA 5 MG ORAL SCH (09:00)
[2018-09-06] MEDS: Repaglinide 1mg tab ORAL SCH ×3 (09:00→18:11)
[2018-09-06] MEDS: Latanoprost 0.005% Opth 2.5ml Soln BOTH EYES SCH ×2 (09:15→18:12)
[2018-09-06] MEDS: Brimonidine 0.2% Opth Sol BOTH EYES SCH ×2 (09:15→18:12)
[2018-09-06] MEDS: Aspirin Baby 81mg ORAL SCH (09:15)
--- NOTE | 2018-09-06 10:22 | Diagnostic Imaging Report ---
Indication: Shortness of breath Technique: One view of the chest Comparison: 09/04/2018 Findings: There is increased pleural fluid on the right. There may be increased parenchymal consolidation as well. Patchy atelectasis and consolidation in the left perihilar region persists, unchanged. Cardiomegaly persists. Impression: Increasing right-sided pleural effusion and possibly underlying parenchymal disease, over 2 days, as described
--- NOTE | 2018-09-06 10:39 | Nephrology Progress Note ---
Assessment/Plan Assessment 1. End-stage renal disease. 2. Anemia of chronic kidney disease. 3. Renal osteodystrophy. 4. Hypertension. 5. Diabetes. 6. Pleural effusion. Plan continue iv antibiotic dialysis as schedule continue epogen PT/OT thoracocentesis Subjective Subjective alert and awake had dialysis yesterday feeling better sister is on her bedside Objective Objective Last 24 Hour Vital Signs Date Time Temp Pulse Resp B/P (MAP) Pulse Ox O2 Delivery O2 Flow Rate FiO2 09/06/18 09:00 85 100/70 09/06/18 08:00 97.9 85 18 100/70 (80) 99 09/06/18 04:00 Room Air 09/06/18 04:00 97.5 76 24 90/55 (67) 98 09/06/18 03:38 74 09/06/18 00:00 99.1 86 22 85/53 (64) 98 09/06/18 00:00 Room Air 09/05/18 23:30 85 09/05/18 21:00 Room Air 09/05/18 20:00 99.1 86 24 88/47 (61) 97 09/05/18 19:01 85 09/05/18 16:00 99.5 92 22 95/58 (70) 97 09/05/18 16:00 92 09/05/18 12:00 99.0 83 26 90/56 (67) 98 09/05/18 11:27 84 Intake and Output 09/05/18 09/06/18 19:00 07:00 Intake Total 250 ml 295 ml Balance 250 ml 295 ml Intake Oral 250 ml 240 ml IV Total 55 ml # Voids 1 # Bowel Movements 1 2 Laboratory Tests 09/06/18 03:15: White Blood Count 17.7H, Red Blood Count 3.31L, Hemoglobin 10.6L, Hematocrit 32.2L, Mean Corpuscular Volume 97, Mean Corpuscular Hemoglobin 31.9H, Mean Corpuscular Hemoglobin Concent 32.7, Red Cell Distribution Width 14.1, Platelet Count 64L, Mean Platelet Volume 9.3, Neutrophils (%) (Auto) , Lymphocytes (%) ( Auto) , Monocytes (%) (Auto) , Eosinophils (%) (Auto) , Basophils (%) (Auto) , Differential Total Cells Counted 100, Neutrophils % (Manual) 94H, Lymphocytes % (Manual) 4L, Monocytes % (Manual) 2, Eosinophils % (Manual) 0, Basophils % ( Manual) 0, Band Neutrophils 0, Platelet Estimate DecreasedL, Platelet Morphology Normal, Hypochromasia 1+, Anisocytosis , Sodium Level 135L, Potassium Level 3.8, Chloride Level 99, Carbon Dioxide Level 25, Anion Gap 11, Blood Urea Nitrogen 62H, Creatinine 5.5H, Estimat Glomerular Filtration Rate , Glucose Level 137H, Calcium Level 7.8L, Total Bilirubin 2.3H, Direct Bilirubin 1.7H, Aspartate Amino Transf (AST/SGOT) 58H, Alanine Aminotransferase (ALT/SGPT ) 25, Alkaline Phosphatase 148H, Total Protein 6.6, Albumin 1.9L, Globulin 4.7, Albumin/Globulin Ratio 0.4L, Random Vancomycin Level 11.4 Height (Feet): 5 Height (Inches): 1.00 Weight (Pounds): 159 Objective EAD AND NECK: No JVP. No LAD. No thyromegaly. Extraocular movement intact. Pupils are reactive to light and accommodation. LUNGS: Decreased breathing sounds on both sides and also has crackles and rhonchi. CARDIAC: Regular rate and rhythm. S1 and S2. No murmur. No rub. ABDOMEN: Soft, nontender, and nondistended. EXTREMITIES: No edema. No clubbing. No cyanosis. Luann Kinsey MD Sep 06, 2018 10:39
--- NOTE | 2018-09-06 10:41 | NUR ---
NURSE NOTES: SEEN AND EXAMINED BY DR ESPINOSA. NEW ORDERS MADE. CALLED AND SPOKE WITH GEL SANGITA AVENDANO FOR SCHEDULED DIALYSIS. WILL CONTINUE TO MONITOR.
--- NOTE | 2018-09-06 10:47 | NUR ---
RADIOLOGY DEPT CHEST X-RAY DONE.-P.DYE
[2018-09-06 12:00] VITALS: BP 97/58
--- NOTE | 2018-09-06 12:35 | NUR ---
CASE MANAGEMENT:REVIEW 09/06/18 SI: SEPSIS. BACTEREMIA. AMI ESRD ON HD 97.9 86 18 100/70 99% ON RA WBC+17.7 PLT-64 BUN+62 CR+5.5 ALB-1.9 IS: IV ALBUMIN X1 IV CEFEPIME Q24 LIPITOR PO QHS NORVASC PO QD ASA PO QD : STEP DOWN UNIT
--- NOTE | 2018-09-06 13:31 | NUR ---
P.T Note: P.T evaluation completed and treatment initiated. Please refer to P.T evaluation for current functional status. Pt is alert, oriented x 4 and cooperative. Pt reports c/o pain the buttocks and sacral area where the wound is located. Pt tolerated P.T evaluation/tx poorly due to pt being limited by pain, generalized weakness and deconditioned stated. Pt currently require MAX A X 1 and extended time to roll/turn and perform supine to/from sit mobility tasks. Pt able to sit with BUE support at the EOB for 5 min however too weak and unable to stand, transfer and ambulate at this time. Skilled P.T service is warranted to improve strength, balance and endurance to increase functional mobility independence and safety. Recommend SNF for further rehab VS home with P.T at [place].
--- NOTE | 2018-09-06 15:30 | Consultation ---
DATE OF CONSULTATION: 09/06/2018 PULMONARY CONSULTATION CONSULTING PHYSICIAN: Cristian Asher M.D. HISTORY OF PRESENT ILLNESS: This is an 83-year-old female with ESRD on dialysis. She came to the hospital with weakness and fatigue. She also had a dry cough. The patient apparently has missed dialysis. Her x-ray of chest showed moderate right pleural effusion, however, on my assessment the patient was saturating 98% on 2 liters and 94% on room air. At this time, she denied any dyspnea on my assessment. PAST MEDICAL HISTORY: ESRD on dialysis, renal osteodystrophy, hypertension, peripheral vascular disease, anemia, and diabetes mellitus. ALLERGIES: To codeine and penicillin. SOCIAL HISTORY: No alcohol or tobacco usage. MEDICATIONS: Reviewed and reconciled in the chart. REVIEW OF SYSTEMS: Denies any headaches, hematemesis, melena, or hematochezia. PHYSICAL EXAMINATION: GENERAL: The patient is an 83-year-old female. HEENT: Unremarkable. CHEST: Decreased breath sounds on the right side. HEART: Sounds are normal. ABDOMEN: Soft. EXTREMITIES: There is no edema. LABORATORY DATA: Lab testing shows white count 14,000, hemoglobin 12. Creatinine is elevated. X-ray of chest shows large effusion. IMPRESSION: 1. Right chest pleural effusion, suspect due to pulmonary edema/volume overload. 2. Need to exclude pneumonia. Agree with antibiotics. 3. ESRD on dialysis. 4. Diabetes mellitus. DISCUSSION: 1. Continue antibiotics. 2. The patient has been seen by Nephrology. 3. At this time, I will hold off on thoracentesis given her comfort level and lack of hypoxemia. 4. Surgical evaluation will be appreciated. 5. We will follow carefully. Cristian Asher M.D. DR: VEDA JOB#: [id number] CC:
[2018-09-06 16:00] VITALS: BP 117/75
--- NOTE | 2018-09-06 16:28 | Surgery Progress Note ---
Surgery Progress Note Subjective Additional Comments doing well. tolerating diet. pain improved. dressing changes going well Objective Last 24 Hour Vital Signs Date Time Temp Pulse Resp B/P (MAP) Pulse Ox O2 Delivery O2 Flow Rate FiO2 09/06/18 16:00 Room Air 09/06/18 12:00 98.2 24 24 97/58 (71) 96 09/06/18 12:00 79 09/06/18 12:00 Room Air 09/06/18 09:00 85 100/70 09/06/18 08:00 Room Air 09/06/18 08:00 86 09/06/18 08:00 97.9 85 18 100/70 (80) 99 09/06/18 04:00 Room Air 09/06/18 04:00 97.5 76 24 90/55 (67) 98 09/06/18 03:38 74 09/06/18 00:00 99.1 86 22 85/53 (64) 98 09/06/18 00:00 Room Air 09/05/18 23:30 85 09/05/18 21:00 Room Air 09/05/18 20:00 99.1 86 24 88/47 (61) 97 09/05/18 19:01 85 I&O Intake and Output 09/05/18 09/06/18 19:00 07:00 Intake Total 250 ml 295 ml Balance 250 ml 295 ml Intake Oral 250 ml 240 ml IV Total 55 ml # Voids 1 # Bowel Movements 1 2 Dressing: saturated Wound: other Drains: other Cardiovascular: RSR Respiratory: clear Abdomen: soft, non-tender, non-distended Extremities: no tenderness, no cyanosis Laboratory Tests Test 09/06/18 03:15 White Blood Count 17.7 K/UL (4.8-10.8) H Red Blood Count 3.31 M/UL (4.20-5.40) L Hemoglobin 10.6 G/DL (12.0-16.0) L Hematocrit 32.2 % (37.0-47.0) L Mean Corpuscular Volume 97 FL (80-99) Mean Corpuscular Hemoglobin 31.9 PG (27.0-31.0) H Mean Corpuscular Hemoglobin Concent 32.7 G/DL (32.0-36.0) Red Cell Distribution Width 14.1 % (11.6-14.8) Platelet Count 64 K/UL (150-450) L Mean Platelet Volume 9.3 FL (6.5-10.1) Neutrophils (%) (Auto) % (45.0-75.0) Lymphocytes (%) (Auto) % (20.0-45.0) Monocytes (%) (Auto) % (1.0-10.0) Eosinophils (%) (Auto) % (0.0-3.0) Basophils (%) (Auto) % (0.0-2.0) Differential Total Cells Counted 100 Neutrophils % (Manual) 94 % (45-75) H Lymphocytes % (Manual) 4 % (20-45) L Monocytes % (Manual) 2 % (1-10) Eosinophils % (Manual) 0 % (0-3) Basophils % (Manual) 0 % (0-2) Band Neutrophils 0 % (0-8) Platelet Estimate Decreased L Platelet Morphology Normal Hypochromasia 1+ Anisocytosis Sodium Level 135 MMOL/L (136-145) L Potassium Level 3.8 MMOL/L (3.5-5.1) Chloride Level 99 MMOL/L (98-107) Carbon Dioxide Level 25 MMOL/L (21-32) Anion Gap 11 mmol/L (5-15) Blood Urea Nitrogen 62 mg/dL (7-18) H Creatinine 5.5 MG/DL (0.55-1.30) H Estimat Glomerular Filtration Rate mL/min (>60) Glucose Level 137 MG/DL (74-106) H Calcium Level 7.8 MG/DL (8.5-10.1) L Total Bilirubin 2.3 MG/DL (0.2-1.0) H Direct Bilirubin 1.7 MG/DL (0.0-0.3) H Aspartate Amino Transf (AST/SGOT) 58 U/L (15-37) H Alanine Aminotransferase (ALT/SGPT) 25 U/L (12-78) Alkaline Phosphatase 148 U/L (46-116) H Total Protein 6.6 G/DL (6.4-8.2) Albumin 1.9 G/DL (3.4-5.0) L Globulin 4.7 g/dL Albumin/Globulin Ratio 0.4 (1.0-2.7) L Random Vancomycin Level 11.4 ug/mL Plan Problems: (1) Abscess of buttock, right Assessment & Plan: 83F with chronic right buttock abscess. 3cm x 4cm with raised induration and central fluctuance. warm, tender, erythema. no drainage. consent obtained from patient for I&D after all risks, benefits, and alteratives discussed. s/p I&D improving wound area improved packing and dressings helping -packing and dressing to right buttock wound TID -IV abx will follow with recs thank you (2) Sepsis Tavon Valencia Sep 06, 2018 16:28
--- NOTE | 2018-09-06 19:22 | NUR ---
HAND-OFF: Report given to CHARO Herzog.
[2018-09-06 20:00] VITALS: BP 102/63
--- NOTE | 2018-09-06 21:00 | NUR ---
NURSE NOTES: Received patient from CHARO Herzog. Patient AO4 in bed with NAD. Shunt noted on right arm. IV flushed and patent. Discussed plan of care with patent. Bed at lowest position; bed alarm on; side rails raised x3. Call light within reach. Will follow plan of care.
[2018-09-06] MEDS: Cefepime HCl 500 MG in D5W 55 ML IV SCH (21:54)
[2018-09-07] VITALS: BP 101/61
[2018-09-07 04:00] VITALS: BP 96/61
[2018-09-07] MEDS: NovoLOG Insulin Flexpen SUBQ SCH ×4 (05:32→21:29)
[2018-09-07 06:47] LABS: HEMATOCRIT 31.8 % (37.0-47.0); HEMOGLOBIN 10.7 G/DL (12.0-16.0); MEAN CORPUSCULAR VOLUME 96 FL (80-99); PLATELET COUNT 39 K/UL (150-450); RED BLOOD COUNT 3.32 M/UL (4.20-5.40); RED CELL DISTRIBUTION WIDTH 14.2 % (11.6-14.8); WHITE BLOOD COUNT 12.9 K/UL (4.8-10.8)
--- NOTE | 2018-09-07 07:37 | NUR ---
HAND-OFF: Report given to CHARO Dial. Patient in stable condition. Plan of care endorsed.
--- NOTE | 2018-09-07 07:37 | NUR ---
NURSE NOTES: Received patient Awake ,breakfast served,assisted by ,sitting up ,continue care
[2018-09-07 07:58] LABS: ALANINE AMINOTRANSFERASE 24 U/L (12-78); ALBUMIN 2.2 G/DL (3.4-5.0); ALBUMIN/GLOBULIN RATIO 0.4 (1.0-2.7); ALKALINE PHOSPHATASE 197 U/L (46-116); ANION GAP 11 mmol/L (5-15); ASPARTATE AMINO TRANSFERASE 57 U/L (15-37); BILIRUBIN,TOTAL 2.4 MG/DL (0.2-1.0); BLOOD UREA NITROGEN 47 mg/dL (7-18); CALCIUM 7.6 MG/DL (8.5-10.1); CARBON DIOXIDE 25 MMOL/L (21-32); CHLORIDE 95 MMOL/L (98-107); CREATININE 4.5 MG/DL (0.55-1.30); POTASSIUM 4.3 MMOL/L (3.5-5.1); SODIUM 131 MMOL/L (136-145)
[2018-09-07 08:00] VITALS: BP 90/63
[2018-09-07 08:04] LABS: BILIRUBIN,DIRECT 1.7 MG/DL (0.0-0.3)
[2018-09-07] MEDS: Heparin 5000 units/ml inj SUBQ SCH ×2 (09:00→21:00)
[2018-09-07] MEDS: Latanoprost 0.005% Opth 2.5ml Soln BOTH EYES SCH ×2 (09:36→17:44)
[2018-09-07] MEDS: Brimonidine 0.2% Opth Sol BOTH EYES SCH ×2 (09:36→17:45)
[2018-09-07] MEDS: Aspirin Baby 81mg ORAL SCH (09:37)
[2018-09-07] MEDS: Flonase Nasal Inhaler 16gm NASAL SCH ×2 (09:37→17:44)
[2018-09-07] MEDS: Repaglinide 1mg tab ORAL SCH ×3 (09:38→17:51)
[2018-09-07] MEDS: TRADJENTA 5 MG ORAL SCH (09:41)
--- NOTE | 2018-09-07 10:34 | Pulmonology Progress Note ---
Assessment/Plan Assessment/Plan IMPRESSION: 1. Right chest pleural effusion, suspect due to pulmonary edema/volume overload. 2. possible pneumonia. Agree with antibiotics. 3. ESRD on dialysis. 4. Diabetes mellitus. DISCUSSION: 1. Continue antibiotics. 2. The patient has been seen by Nephrology. 3. At this time, I will hold off on thoracentesis given her comfort level and lack of hypoxemia. 4. Surgical evaluation appreciated. 5. I will follow carefully. Cristian Asher M.D. Subjective Interval Events: no new events noted. On nasal oxygen or room air; saturating well Constitutional: Reports: no symptoms HEENT: Repors: no symptoms Respiratory: Reports: no symptoms Cardiovascular: Reports: no symptoms Gastrointestinal/Abdominal: Reports: no symptoms Genitourinary: Reports: no symptoms Allergies: Coded Allergies: PENICILLINS (Verified Allergy, Intermediate, itching/rash., 10/23/14) Uncoded Allergies: " some kind of antibiotic " (Allergy, Intermediate, generalized itching, ) CODEIN (Allergy, Unknown, 09/04/18) Objective Last 24 Hour Vital Signs Date Time Temp Pulse Resp B/P (MAP) Pulse Ox O2 Delivery O2 Flow Rate FiO2 09/07/18 09:00 89 90/63 09/07/18 04:00 91 09/07/18 04:00 98.6 90 22 96/61 (73) 96 09/07/18 04:00 Room Air 09/07/18 00:00 Room Air 09/07/18 00:00 91 09/07/18 00:00 99.0 92 24 101/61 (74) 98 09/06/18 20:00 Room Air 09/06/18 20:00 93 09/06/18 20:00 98.9 88 22 102/63 (76) 98 09/06/18 16:00 82 09/06/18 16:00 98.1 96 14 117/75 (89) 99 09/06/18 16:00 Room Air 09/06/18 12:00 98.2 84 24 97/58 (71) 96 09/06/18 12:00 79 09/06/18 12:00 Room Air Intake and Output 09/06/18 09/07/18 19:00 07:00 Intake Total 607.416 ml 105 ml Balance 607.416 ml 105 ml Intake Oral 240 ml 50 ml IV Total 367.416 ml 55 ml # Bowel Movements 1 2 General Appearance: no acute distress HEENT: normocephalic Respiratory/Chest: chest wall non-tender, normal breath sounds Cardiovascular: normal peripheral pulses, normal rate Abdomen: normal bowel sounds, soft, non tender Extremities: no cyanosis Laboratory Tests 09/07/18 05:47: White Blood Count 12.9H, Red Blood Count 3.32L, Hemoglobin 10.7L, Hematocrit 31.8L, Mean Corpuscular Volume 96, Mean Corpuscular Hemoglobin 32.1H, Mean Corpuscular Hemoglobin Concent 33.5, Red Cell Distribution Width 14.2, Platelet Count 39L, Mean Platelet Volume 11.9H, Neutrophils (%) (Auto) , Lymphocytes (%) (Auto) , Monocytes (%) (Auto) , Eosinophils (%) (Auto) , Basophils (%) (Auto) , Neutrophils % (Manual) [Pending], Lymphocytes % (Manual) [Pending], Platelet Estimate [Pending], Platelet Morphology [Pending], Sodium Level 131L, Potassium Level 4.3, Chloride Level 95L, Carbon Dioxide Level 25, Anion Gap 11, Blood Urea Nitrogen 47H, Creatinine 4.5H, Estimat Glomerular Filtration Rate , Glucose Level 136H, Calcium Level 7.6L, Total Bilirubin 2.4H, Direct Bilirubin 1.7H, Aspartate Amino Transf (AST/SGOT) 57H, Alanine Aminotransferase (ALT/SGPT ) 24, Alkaline Phosphatase 197H, Total Protein 7.2, Albumin 2.2L, Globulin 5.0, Albumin/Globulin Ratio 0.4L Current Medications Medications (Trade) Dose Ordered Sig/Olayinka Route PRN Reason Start Time Stop Time Status Last Admin Dose Admin Acetaminophen (Tylenol) 650 mg Q6H PRN ORAL For Pain 09/05/18 18:45 10/05/18 18:44 Amlodipine Besylate (Norvasc) 5 mg DAILY ORAL 09/04/18 09:00 10/04/18 08:59 Aspirin (ASA) 81 mg DAILY ORAL 09/04/18 09:00 10/04/18 08:59 09/07/18 09:37 Atorvastatin Calcium (Lipitor) 10 mg BEDTIME ORAL 09/04/18 21:00 10/04/18 20:59 09/06/18 21:55 Brimonidine Tartrate (Alphagan) 1 drop BID BOTH EYES 09/04/18 09:00 10/04/18 08:59 09/07/18 09:36 Cefepime HCl 500 mg/Dextrose 55 ml @ 110 mls/hr Q24H IV 09/05/18 20:00 09/12/18 19:59 09/06/18 21:54 Dextrose (Dextrose 50%) 25 ml Q30M PRN IV Hypoglycemia 09/04/18 07:45 10/04/18 07:44 Dextrose (Dextrose 50%) 50 ml Q30M PRN IV Hypoglycemia 09/04/18 07:45 10/04/18 07:44 09/06/18 01:35 Fluticasone Propionate (Flonase) 1 spray TWICE A DAY NASAL 09/04/18 09:00 10/04/18 08:59 09/07/18 09:37 Heparin Sodium (Porcine) (Heparin 5000 units/ml) 5,000 units EVERY 12 HOURS SUBQ 09/04/18 09:00 10/04/18 08:59 09/05/18 20:37 Insulin Aspart (NovoLOG) NOVOLOG INSULIN BEFORE MEALS AND HS SUBQ 09/04/18 11:30 10/04/18 11:29 09/07/18 05:32 Latanoprost (Xalatan) 1 drop BID BOTH EYES 09/04/18 09:00 10/04/18 08:59 09/07/18 09:36 Levothyroxine Sodium (Synthroid) 100 mcg ACBREAKFAST ORAL 09/04/18 06:30 10/04/18 06:29 09/07/18 05:33 Patient Own Medication (Patient's Own Med) 1 ea DAILY ORAL 09/05/18 09:00 10/05/18 08:59 09/07/18 09:41 Repaglinide (Prandin) 2 mg TID ORAL 09/04/18 09:00 10/04/18 08:59 09/07/18 09:38 Vancomycin HCl (Vanco rx to dose) 1 ea DAILY PRN MISC Per rx protocol 2/27/19 10:45 10/05/18 10:44 Cristian Asher MD Sep 07, 2018 10:34
--- NOTE | 2018-09-07 11:13 | Surgery Progress Note ---
Surgery Progress Note Subjective Symptoms: improved, pain same, tolerating diet, BM Objective Last 24 Hour Vital Signs Date Time Temp Pulse Resp B/P (MAP) Pulse Ox O2 Delivery O2 Flow Rate FiO2 09/07/18 09:00 89 90/63 09/07/18 04:00 91 09/07/18 04:00 98.6 90 22 96/61 (73) 96 09/07/18 04:00 Room Air 09/07/18 00:00 Room Air 09/07/18 00:00 91 09/07/18 00:00 99.0 92 24 101/61 (74) 98 09/06/18 20:00 Room Air 09/06/18 20:00 93 09/06/18 20:00 98.9 88 22 102/63 (76) 98 09/06/18 16:00 82 09/06/18 16:00 98.1 96 14 117/75 (89) 99 09/06/18 16:00 Room Air 09/06/18 12:00 98.2 84 24 97/58 (71) 96 09/06/18 12:00 79 09/06/18 12:00 Room Air I&O Intake and Output 09/06/18 09/07/18 19:00 07:00 Intake Total 607.416 ml 105 ml Balance 607.416 ml 105 ml Intake Oral 240 ml 50 ml IV Total 367.416 ml 55 ml # Bowel Movements 1 2 Dressing: saturated Wound: clean Drains: none Cardiovascular: RSR Respiratory: clear Abdomen: soft, flat, non-tender, non-distended Extremities: no cyanosis Laboratory Tests Test 09/07/18 05:47 White Blood Count 12.9 K/UL (4.8-10.8) H Red Blood Count 3.32 M/UL (4.20-5.40) L Hemoglobin 10.7 G/DL (12.0-16.0) L Hematocrit 31.8 % (37.0-47.0) L Mean Corpuscular Volume 96 FL (80-99) Mean Corpuscular Hemoglobin 32.1 PG (27.0-31.0) H Mean Corpuscular Hemoglobin Concent 33.5 G/DL (32.0-36.0) Red Cell Distribution Width 14.2 % (11.6-14.8) Platelet Count 39 K/UL (150-450) L Mean Platelet Volume 11.9 FL (6.5-10.1) H Neutrophils (%) (Auto) % (45.0-75.0) Lymphocytes (%) (Auto) % (20.0-45.0) Monocytes (%) (Auto) % (1.0-10.0) Eosinophils (%) (Auto) % (0.0-3.0) Basophils (%) (Auto) % (0.0-2.0) Neutrophils % (Manual) Pending Lymphocytes % (Manual) Pending Platelet Estimate Pending Platelet Morphology Pending Sodium Level 131 MMOL/L (136-145) L Potassium Level 4.3 MMOL/L (3.5-5.1) Chloride Level 95 MMOL/L (98-107) L Carbon Dioxide Level 25 MMOL/L (21-32) Anion Gap 11 mmol/L (5-15) Blood Urea Nitrogen 47 mg/dL (7-18) H Creatinine 4.5 MG/DL (0.55-1.30) H Estimat Glomerular Filtration Rate mL/min (>60) Glucose Level 136 MG/DL (74-106) H Calcium Level 7.6 MG/DL (8.5-10.1) L Total Bilirubin 2.4 MG/DL (0.2-1.0) H Direct Bilirubin 1.7 MG/DL (0.0-0.3) H Aspartate Amino Transf (AST/SGOT) 57 U/L (15-37) H Alanine Aminotransferase (ALT/SGPT) 24 U/L (12-78) Alkaline Phosphatase 197 U/L (46-116) H Total Protein 7.2 G/DL (6.4-8.2) Albumin 2.2 G/DL (3.4-5.0) L Globulin 5.0 g/dL Albumin/Globulin Ratio 0.4 (1.0-2.7) L Plan Problems: (1) Abscess of buttock, right Assessment & Plan: 83F with chronic right buttock abscess. 3cm x 4cm with raised induration and central fluctuance. warm, tender, erythema. no drainage. consent obtained from patient for I&D after all risks, benefits, and alteratives discussed. s/p I&D improving wound area improved packing and dressings helping -packing and dressing to right buttock wound TID -IV abx will follow with recs thank you (2) Sepsis Tavon Valencia Sep 07, 2018 11:13
--- NOTE | 2018-09-07 11:30 | NUR ---
NURSE NOTES: sister visited supportive encourage to eat,no appetite feel nauseous,elevate head ,aspiration precaution,patient conversant thankful
[2018-09-07 12:00] VITALS: BP 97/59
--- NOTE | 2018-09-07 13:09 | NUR ---
CASE MANAGEMENT:REVIEW 09/07/18 SI: SEPSIS. ABSCESS OF RT BUTTOCK ESRD ON HD 98.6 90 22 96/61 96% ON RA WBC+12.9 BUN+47 CR+4.5 IS: IV CEFEPIME Q24 LIPITOR PO QHS NORVASC PO QD ASA PO QD PRANDIN PO TID HEPARIN SQ Q12 SYNTHROID PO QAM : STEP DOWN UNIT DCP: PATIENT IS FROM HOME BUT MAY BENEFIT FROM SNF PLACEMENT UPON DISCHARGE PLAN: WOUND PACKING AND DRESSING TO RT BUTTOCK
--- NOTE | 2018-09-07 13:26 | NUR ---
DISCHARGE PLANNING CASE MANAGEMENT ORDER NOTED FROM DR ESPINOSA. CLINICALS FAXED TO [facility] ORDERED T: [phone] F [phone]
--- NOTE | 2018-09-07 15:45 | NUR ---
DISCHARGE PLANNING PATIENT HAS BEEN REFERRED TO [facility] ~ MELTING OPERATOR CALLED TO F/U BUT WAS ONLY ABLE TO LEAVE A MESSAGE DISCHARGE PLANNING DISCUSSED WITH DR PATRICIO WHO RECOMMENDED HOME WITH HOME HEALTH MELTING OPERATOR SPOKE WITH SISTER AT BEDSIDE AND SHE IS AFRAID TO TAKE PATIENT HOME SINCE SHE CANNOT WALK. SISTER WOULD LIKE MELTING OPERATOR TO DISCUSS DISCHARGE PLAN WITH PATIENT'S SON SG TREVINO CALLED SG AT T:[phone] BUT WAS ONLY ABLE TO LEAVE A MESSAGE REGARDING DISCHARGE PLAN MELTING OPERATOR ALSO LEFT VMM FOR PMG MELTING OPERATOR EBONI @ T: [phone] REGARDING THE ABOVE IF PATIENT GOES TO SNF IT NEEDS TO BE ACCESSIBLE FOR SISTER NEITHER SISTER NOR PATIENT KNOW THE NAME OF DIALYSIS CENTER ~ DR ESPINOSA IS THE OPTICIAN INSTRUCTED BY DR PATRICIO TO REFER PATIENT TO [facility] Addendum: 09/07/18 at 1612 by WENDY ALCANTAR LVN LVN PATIENT IS USUALLY DIALYZED AT [facility] T: [phone] F: [phone] CHAIR TIME IS -SAT @ 7:15 FAXED CLINICALS TO [facility] AT [facility]
[2018-09-07 16:00] VITALS: BP 126/64
[2018-09-07] MEDS ORDERED: D5 1/2NS 1000ml IV ONE (16:35)
[2018-09-07] MEDS ORDERED: Tubing IV Secondary IV ONE ×2 (16:35→17:05)
--- NOTE | 2018-09-07 16:56 | Infectious Diseases Prog Note ---
Assessment/Plan Assessment/Plan ASSESSMENT AND PLAN: 1. staph aureus bacteremia/mssa, right buttock abscess is likely source, sepsis , leukocytosis, ? pna vs edema - iv vancomycin and cefepime for now - can give 3 weeks of iv vancomycin with dialysis for staph aureus bacteremia as outpatient - s/p I/D right buttock abscess - check sputum culture, labs and chest x-ray - surveillance blood cultures negative - TTE without discrete vegetation - sacral wound culture with e.coli and pipe finisher likely colonizer, continue local wound care - communicated with Dr. Correia 2. End-stage renal disease. Hemodialysis. 3. Hyperlipidemia. 4. Hypothyroidism. 5. Diabetes. 6. Hypertension. 7. Blood sugar, blood pressure treatment per primary for hypertension and diabetes. 8. Right arm fistula. 9. Peripheral artery disease. 10. Anemia of chronic kidney disease. 11. Renal osteodystrophy. 12. Allergy to codeine, penicillin, tolerates cefepime. 13. Social history negative. 14. Family history noncontributory. 15. MAR was noted. 16. Case discussed with RN. 17. Continue treatment per primary consultants. Subjective Constitutional: Denies: fever HEENT: Denies: congestion Respiratory: Denies: shortness of breath Gastrointestinal/Abdominal: Reports: diarrhea; Denies: nausea, vomiting Genitourinary: Reports: other - no caba, + hd Neurologic: Denies: headache Skin: Denies: rash Hematologic: Denies: bleeding Musculoskeletal: Reports: other - right buttock pain controlled ; Denies: pain Allergies: Coded Allergies: PENICILLINS (Verified Allergy, Intermediate, itching/rash., 10/23/14) CODEINE (Unverified Allergy, Unknown, 09/07/18) COPIED from uncoded section Uncoded Allergies: " some kind of antibiotic " (Allergy, Intermediate, generalized itching, ) Objective Vital Signs Last 24 Hour Vital Signs Date Time Temp Pulse Resp B/P (MAP) Pulse Ox O2 Delivery O2 Flow Rate FiO2 09/07/18 09:00 89 90/63 09/07/18 08:30 Room Air 09/07/18 04:00 91 09/07/18 04:00 98.6 90 22 96/61 (73) 96 09/07/18 04:00 Room Air 09/07/18 00:00 Room Air 09/07/18 00:00 91 09/07/18 00:00 99.0 92 24 101/61 (74) 98 09/06/18 20:00 Room Air 09/06/18 20:00 93 09/06/18 20:00 98.9 88 22 102/63 (76) 98 Height (Feet): 5 Height (Inches): 1.00 Weight (Pounds): 1595 General Appearance: no acute distress HEENT: normocephalic, atraumatic, anicteric, mucous membranes moist Respiratory/Chest: lungs clear, normal breath sounds, no respiratory distress, no accessory muscle use Cardiovascular: normal rate, regular rhythm, no gallop/murmur, no JVD Abdomen: normal bowel sounds, soft, non tender, no organomegaly, non distended Genitourinary: other - no caba Extremities: no cyanosis Skin: no rash Neurologic/Psychiatric: 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 There may be increased parenchymal consolidation as well. Patchy atelectasis and consolidation in the left perihilar region persists, unchanged. Cardiomegaly persists. Impression: Increasing right-sided pleural effusion and possibly underlying parenchymal disease, over 2 days, as described Microbiology Date/Time Source Procedure Growth Status 09/06/18 03:25 Blood Blood Culture - Preliminary NO GROWTH AFTER 24 HOURS Resulted 09/04/18 05:30 Wound Gram Stain - Final Resulted 09/04/18 05:30 Wound Culture - Preliminary Escherichia Coli Staphylococcus Sp Coag Neg Resulted 09/04/18 01:02 Nasal Nares Influenza Types A,B Antigen (AYSHA) - Final Complete 09/04/18 00:40 Rectum - Final NO CARBAPENEM-RESISTANT ENTEROBACTERI... Complete Microbiology Date/Time Source Procedure Growth Status 09/06/18 03:25 Blood Blood Culture - Preliminary NO GROWTH AFTER 24 HOURS Resulted 09/06/18 03:15 Blood Blood Culture - Preliminary NO GROWTH AFTER 24 HOURS Resulted Laboratory Tests Test 09/07/18 05:47 White Blood Count 12.9 K/UL (4.8-10.8) H Red Blood Count 3.32 M/UL (4.20-5.40) L Hemoglobin 10.7 G/DL (12.0-16.0) L Hematocrit 31.8 % (37.0-47.0) L Mean Corpuscular Volume 96 FL (80-99) Mean Corpuscular Hemoglobin 32.1 PG (27.0-31.0) H Mean Corpuscular Hemoglobin Concent 33.5 G/DL (32.0-36.0) Red Cell Distribution Width 14.2 % (11.6-14.8) Platelet Count 39 K/UL (150-450) L Mean Platelet Volume 11.9 FL (6.5-10.1) H Neutrophils (%) (Auto) % (45.0-75.0) Lymphocytes (%) (Auto) % (20.0-45.0) Monocytes (%) (Auto) % (1.0-10.0) Eosinophils (%) (Auto) % (0.0-3.0) Basophils (%) (Auto) % (0.0-2.0) Differential Total Cells Counted 100 Neutrophils % (Manual) 82 % (45-75) H Lymphocytes % (Manual) 11 % (20-45) L Monocytes % (Manual) 7 % (1-10) Eosinophils % (Manual) 0 % (0-3) Basophils % (Manual) 0 % (0-2) Band Neutrophils 0 % (0-8) Platelet Estimate Decreased L Platelet Morphology Normal Polychromasia 1+ Hypochromasia 1+ Sodium Level 131 MMOL/L (136-145) L Potassium Level 4.3 MMOL/L (3.5-5.1) Chloride Level 95 MMOL/L (98-107) L Carbon Dioxide Level 25 MMOL/L (21-32) Anion Gap 11 mmol/L (5-15) Blood Urea Nitrogen 47 mg/dL (7-18) H Creatinine 4.5 MG/DL (0.55-1.30) H Estimat Glomerular Filtration Rate mL/min (>60) Glucose Level 136 MG/DL (74-106) H Calcium Level 7.6 MG/DL (8.5-10.1) L Total Bilirubin 2.4 MG/DL (0.2-1.0) H Direct Bilirubin 1.7 MG/DL (0.0-0.3) H Aspartate Amino Transf (AST/SGOT) 57 U/L (15-37) H Alanine Aminotransferase (ALT/SGPT) 24 U/L (12-78) Alkaline Phosphatase 197 U/L (46-116) H Total Protein 7.2 G/DL (6.4-8.2) Albumin 2.2 G/DL (3.4-5.0) L Globulin 5.0 g/dL Albumin/Globulin Ratio 0.4 (1.0-2.7) L Current Medications Medications (Trade) Dose Ordered Sig/Olayinka Route PRN Reason Start Time Stop Time Status Last Admin Dose Admin Acetaminophen (Tylenol) 650 mg Q6H PRN ORAL For Pain 09/05/18 18:45 10/05/18 18:44 Amlodipine Besylate (Norvasc) 5 mg DAILY ORAL 09/04/18 09:00 10/04/18 08:59 Aspirin (ASA) 81 mg DAILY ORAL 09/04/18 09:00 10/04/18 08:59 09/07/18 09:37 Atorvastatin Calcium (Lipitor) 10 mg BEDTIME ORAL 09/04/18 21:00 10/04/18 20:59 09/06/18 21:55 Brimonidine Tartrate (Alphagan) 1 drop BID BOTH EYES 09/04/18 09:00 10/04/18 08:59 09/07/18 09:36 Cefepime HCl 500 mg/Dextrose 55 ml @ 110 mls/hr Q24H IV 09/05/18 20:00 09/12/18 19:59 09/06/18 21:54 Dextrose (Dextrose 50%) 25 ml Q30M PRN IV Hypoglycemia 09/04/18 07:45 10/04/18 07:44 Dextrose (Dextrose 50%) 50 ml Q30M PRN IV Hypoglycemia 09/04/18 07:45 10/04/18 07:44 09/06/18 01:35 Fluticasone Propionate (Flonase) 1 spray TWICE A DAY NASAL 09/04/18 09:00 10/04/18 08:59 09/07/18 09:37 Heparin Sodium (Porcine) (Heparin 5000 units/ml) 5,000 units EVERY 12 HOURS SUBQ 09/04/18 09:00 10/04/18 08:59 09/05/18 20:37 Insulin Aspart (NovoLOG) NOVOLOG INSULIN BEFORE MEALS AND HS SUBQ 09/04/18 11:30 10/04/18 11:29 09/07/18 12:39 Latanoprost (Xalatan) 1 drop BID BOTH EYES 09/04/18 09:00 10/04/18 08:59 09/07/18 09:36 Levothyroxine Sodium (Synthroid) 100 mcg ACBREAKFAST ORAL 09/04/18 06:30 10/04/18 06:29 09/07/18 05:33 Patient Own Medication (Patient's Own Med) 1 ea DAILY ORAL 09/05/18 09:00 10/05/18 08:59 09/07/18 09:41 Repaglinide (Prandin) 2 mg TID ORAL 09/04/18 09:00 10/04/18 08:59 09/07/18 14:06 Vancomycin HCl (Vanco rx to dose) 1 ea DAILY PRN MISC Per rx protocol 09/05/18 10:45 10/05/18 10:44 Cristopher Helton MD Sep 07, 2018 16:56
[2018-09-07] MEDS ORDERED: NS 275ml ONE (17:05)
--- NOTE | 2018-09-07 19:40 | NUR ---
NURSE NOTES: Received Pt is resting on the bed and awake and alert. No sign of acute distress noted. Iv site intact and no sign of infiltration noted. Pt has Rt upper arm AV shunt and present of bruit and thrills. Dressing is clean and dry on wound area. Left message to Dr. Amelie matute dialysis order. Placed fall precaution. Will continue to care plan.
--- NOTE | 2018-09-07 19:58 | Nephrology Progress Note ---
Assessment/Plan Assessment 1. End-stage renal disease. 2. Anemia of chronic kidney disease. 3. Renal osteodystrophy. 4. Hypertension. 5. Diabetes. 6. sacral abscess . Plan continue iv antibiotic dialysis as schedule continue epogen PT/OT Subjective Subjective alert and awake Objective Objective Last 24 Hour Vital Signs Date Time Temp Pulse Resp B/P (MAP) Pulse Ox O2 Delivery O2 Flow Rate FiO2 09/07/18 12:00 83 09/07/18 12:00 98.6 84 20 97/59 (72) 97 09/07/18 09:00 89 90/63 09/07/18 08:30 Room Air 09/07/18 08:00 98.6 89 20 90/63 (72) 97 09/07/18 08:00 94 09/07/18 04:00 91 09/07/18 04:00 98.6 90 22 96/61 (73) 96 09/07/18 04:00 Room Air 09/07/18 00:00 Room Air 09/07/18 00:00 91 09/07/18 00:00 99.0 92 24 101/61 (74) 98 09/06/18 20:00 Room Air 09/06/18 20:00 93 09/06/18 20:00 98.9 88 22 102/63 (76) 98 Intake and Output 09/06/18 09/07/18 19:00 07:00 Intake Total 607.416 ml 105 ml Balance 607.416 ml 105 ml Intake Oral 240 ml 50 ml IV Total 367.416 ml 55 ml # Bowel Movements 1 2 Laboratory Tests 09/07/18 05:47: White Blood Count 12.9H, Red Blood Count 3.32L, Hemoglobin 10.7L, Hematocrit 31.8L, Mean Corpuscular Volume 96, Mean Corpuscular Hemoglobin 32.1H, Mean Corpuscular Hemoglobin Concent 33.5, Red Cell Distribution Width 14.2, Platelet Count 39L, Mean Platelet Volume 11.9H, Neutrophils (%) (Auto) , Lymphocytes (%) (Auto) , Monocytes (%) (Auto) , Eosinophils (%) (Auto) , Basophils (%) (Auto) , Differential Total Cells Counted 100, Neutrophils % (Manual) 82H, Lymphocytes % (Manual) 11L, Monocytes % (Manual) 7, Eosinophils % (Manual) 0, Basophils % ( Manual) 0, Band Neutrophils 0, Platelet Estimate DecreasedL, Platelet Morphology Normal, Polychromasia 1+, Hypochromasia 1+, Sodium Level 131L, Potassium Level 4.3, Chloride Level 95L, Carbon Dioxide Level 25, Anion Gap 11, Blood Urea Nitrogen 47H, Creatinine 4.5H, Estimat Glomerular Filtration Rate , Glucose Level 136H, Calcium Level 7.6L, Total Bilirubin 2.4H, Direct Bilirubin 1.7H, Aspartate Amino Transf (AST/SGOT) 57H, Alanine Aminotransferase (ALT/SGPT ) 24, Alkaline Phosphatase 197H, Total Protein 7.2, Albumin 2.2L, Globulin 5.0, Albumin/Globulin Ratio 0.4L Height (Feet): 5 Height (Inches): 1.00 Weight (Pounds): 159 Objective EAD AND NECK: No JVP. No LAD. No thyromegaly. Extraocular movement intact. Pupils are reactive to light and accommodation. LUNGS: Decreased breathing sounds on both sides and also has crackles and rhonchi. CARDIAC: Regular rate and rhythm. S1 and S2. No murmur. No rub. ABDOMEN: Soft, nontender, and nondistended. EXTREMITIES: No edema. No clubbing. No cyanosis. Luann Kinsey MD Sep 07, 2018 19:58
[2018-09-07 20:00] VITALS: BP 100/54
--- NOTE | 2018-09-07 20:16 | NUR ---
NURSE NOTES: Get dialysis order for tomorrow from Dr. Kinsey and called [facility] dialysis center and spoke with Daphne. Will continue to monitor any change of condition.
[2018-09-07] MEDS: Cefepime HCl 500 MG in D5W 55 ML IV SCH (20:24)
[2018-09-08] VITALS: BP 147/74
[2018-09-08] MEDS ORDERED: Bisacodyl EC 5mg tab ORAL PRN (02:00)
[2018-09-08 04:00] VITALS: BP_SYST 100; BP_SYST 60; BP_SYST 90; BP_DIAS 60; BP_DIAS 74
--- NOTE | 2018-09-08 04:45 | Progress Note ---
DATE: 09/06/2018 INTERNAL MEDICINE PROGRESS NOTE Late entry for September 06, 2018. SUBJECTIVE: The patient is scheduled for hemodialysis with ultrafiltration today. The patient's blood pressure is slightly improved. The patient is status post I and D of buttocks abscess. The patient has radiographic evidence of pleural effusion. Pulmonary consultation appreciated. OBJECTIVE: VITAL SIGNS: Blood pressure 100/70, pulse 85, and respiratory rate 18. LUNGS: With diminished breath sounds. CARDIAC: Regular rhythm and rate. Normal S1 and S2. ABDOMEN: Soft. EXTREMITIES: Trace edema. Buttocks with dressing in place at the site of drainage. IMPRESSION: 1. Buttocks abscess. 2. Sepsis. 3. Anemia. 4. End-stage renal disease. 5. Pleural effusions. 6. Acute on chronic diastolic congestive heart failure. PLAN: 1. Antimicrobials. 2. Wound care. 3. Hemodialysis with ultrafiltration. 4. antihypertensives. 5. Echocardiogram to evaluate valve. Garry Correia M.D. DR: ABHINAV JOB#: [id number] CC:
--- NOTE | 2018-09-08 04:45 | Progress Note ---
DATE: 09/05/2018 CARDIOLOGY INTERNAL MEDICINE PROGRESS NOTE SUBJECTIVE: The patient is on empiric antibiotics. She has been noted to have an abscess below her left buttocks. OBJECTIVE: VITAL SIGNS: Blood pressure 83/48, pulse 87, respirations 20, temperature 99.4 max. She is status post hemodialysis with ultrafiltration yesterday. LUNGS: Clear. CARDIAC: Regular rhythm and rate. Normal S1, S2 with a fourth heart sound. ABDOMEN: Soft. EXTREMITIES: No edema. Palpable hematoma versus abscess below left buttocks. IMPRESSION: 1. Sepsis. 2. Shock. 3. Possible abscess. 4. Acute myocardial ischemia. 5. End-stage renal disease. 6. Severe protein-calorie malnutrition. PLAN: 1. Continue empiric antibiotics. 2. Surgical evaluation for drainage of the abscess. 3. Imaging studies to precede the intervention. 4. Hemodialysis with ultrafiltration for volume management. 5. Hold all antihypertensives until blood pressure parameters more stable. 6. Volume support as needed. Garry Correia M.D. DR: QI JOB#: [id number] CC:
[2018-09-08] MEDS: NovoLOG Insulin Flexpen SUBQ SCH ×4 (06:30→21:00)
--- NOTE | 2018-09-08 07:31 | NUR ---
HAND-OFF: Report given to CHARO Anand. Regina is resting on the bed and no sign of acute distress noted. Hemodialysis scheduled today and endorsed incoming nurse.
--- NOTE | 2018-09-08 07:39 | NUR ---
NURSE NOTES: Report received from CHARO Marsh. Observed patient in bed. Awake and verbally responsive. Denies pain at this time. IV site intact and patent. No distress noted in room air. Bed in lowest position. Call light within reach. Will continue to monitor.
[2018-09-08 07:46] LABS: HEMATOCRIT 37.5 % (37.0-47.0); HEMOGLOBIN 12.3 G/DL (12.0-16.0); MEAN CORPUSCULAR VOLUME 95 FL (80-99); PLATELET COUNT 52 K/UL (150-450); RED BLOOD COUNT 3.94 M/UL (4.20-5.40); RED CELL DISTRIBUTION WIDTH 14.2 % (11.6-14.8); WHITE BLOOD COUNT 11.4 K/UL (4.8-10.8)
[2018-09-08 08:00] VITALS: BP 92/55
[2018-09-08 08:27] LABS: ALANINE AMINOTRANSFERASE 23 U/L (12-78); ALBUMIN/GLOBULIN RATIO 0.4 (1.0-2.7); ALKALINE PHOSPHATASE 213 U/L (46-116); ANION GAP 13 mmol/L (5-15); ASPARTATE AMINO TRANSFERASE 58 U/L (15-37); BILIRUBIN,TOTAL 2.7 MG/DL (0.2-1.0); BLOOD UREA NITROGEN 67 mg/dL (7-18); CALCIUM 7.4 MG/DL (8.5-10.1); CARBON DIOXIDE 25 MMOL/L (21-32); CHLORIDE 93 MMOL/L (98-107); CREATININE 5.4 MG/DL (0.55-1.30); POTASSIUM 4.6 MMOL/L (3.5-5.1); SODIUM 131 MMOL/L (136-145)
[2018-09-08 08:31] LABS: BILIRUBIN,DIRECT 1.8 MG/DL (0.0-0.3)
[2018-09-08] MEDS: Heparin 5000 units/ml inj SUBQ SCH ×2 (08:56→20:40)
[2018-09-08] MEDS: Aspirin Baby 81mg ORAL SCH (08:59)
[2018-09-08] MEDS: Repaglinide 1mg tab ORAL SCH ×3 (08:59→17:12)
[2018-09-08] MEDS: TRADJENTA 5 MG ORAL SCH (08:59)
[2018-09-08] MEDS: Docusate 250mg cap ORAL SCH (08:59)
[2018-09-08] MEDS: Flonase Nasal Inhaler 16gm NASAL SCH ×2 (09:00→17:13)
[2018-09-08] MEDS: Brimonidine 0.2% Opth Sol BOTH EYES SCH ×2 (09:00→17:11)
[2018-09-08] MEDS: Latanoprost 0.005% Opth 2.5ml Soln BOTH EYES SCH ×2 (09:00→17:13)
--- NOTE | 2018-09-08 10:00 | Pulmonology Progress Note ---
Assessment/Plan Assessment/Plan IMPRESSION: 1. Right chest pleural effusion, suspect due to pulmonary edema/volume overload. 2. possible pneumonia. Agree with antibiotics. 3. ESRD on dialysis. 4. Diabetes mellitus. DISCUSSION: 1. Continue antibiotics. 2. The patient has been seen by Nephrology. 3. At this time, I will hold off on thoracentesis given her comfort level and lack of hypoxemia. 4. Surgical evaluation appreciated. 5. I will follow carefully. Cristian Asher M.D. Subjective Interval Events: None new Constitutional: Reports: no symptoms HEENT: Repors: no symptoms Respiratory: Reports: no symptoms Cardiovascular: Reports: no symptoms Gastrointestinal/Abdominal: Reports: no symptoms Allergies: Coded Allergies: PENICILLINS (Verified Allergy, Intermediate, itching/rash., 10/23/14) CODEINE (Unverified Allergy, Unknown, 09/07/18) COPIED from uncoded section Uncoded Allergies: " some kind of antibiotic " (Allergy, Intermediate, generalized itching, ) Objective Last 24 Hour Vital Signs Date Time Temp Pulse Resp B/P (MAP) Pulse Ox O2 Delivery O2 Flow Rate FiO2 09/08/18 08:00 97.7 80 24 92/55 (67) 98 09/08/18 08:00 Room Air 09/08/18 04:00 79 09/08/18 04:00 98.6 76 20 100/60 (73) 98 09/08/18 04:00 Room Air 09/08/18 00:00 98.7 75 20 147/74 (98) 98 09/08/18 00:00 85 09/08/18 00:00 Room Air 09/07/18 20:00 98.1 83 20 100/54 (69) 98 09/07/18 20:00 83 09/07/18 20:00 Room Air 09/07/18 16:00 Room Air 09/07/18 16:00 98.0 85 20 126/64 (84) 98 09/07/18 12:00 83 09/07/18 12:00 98.6 84 20 97/59 (72) 97 09/07/18 12:00 Room Air Intake and Output 09/07/18 09/08/18 19:00 07:00 Intake Total 510 ml 295 ml Balance 510 ml 295 ml Intake Oral 510 ml 240 ml IV Total 55 ml # Bowel Movements 1 General Appearance: no acute distress HEENT: normocephalic Respiratory/Chest: chest wall non-tender, lungs clear Cardiovascular: normal peripheral pulses, normal rate Microbiology Date/Time Source Procedure Growth Status 09/06/18 03:25 Blood Blood Culture - Preliminary NO GROWTH AFTER 24 HOURS Resulted 09/06/18 03:15 Blood Blood Culture - Preliminary NO GROWTH AFTER 24 HOURS Resulted Laboratory Tests 09/08/18 05:10: White Blood Count 11.4H, Red Blood Count 3.94L, Hemoglobin 12.3, Hematocrit 37.5 , Mean Corpuscular Volume 95, Mean Corpuscular Hemoglobin 31.1H, Mean Corpuscular Hemoglobin Concent 32.7, Red Cell Distribution Width 14.2, Platelet Count 52L, Mean Platelet Volume 9.8, Neutrophils (%) (Auto) , Lymphocytes (%) ( Auto) , Monocytes (%) (Auto) , Eosinophils (%) (Auto) , Basophils (%) (Auto) , Differential Total Cells Counted 100, Neutrophils % (Manual) 83H, Lymphocytes % (Manual) 11L, Monocytes % (Manual) 4, Eosinophils % (Manual) 2, Basophils % ( Manual) 0, Band Neutrophils 0, Platelet Estimate DecreasedL, Platelet Morphology Normal, Sodium Level 131L, Potassium Level 4.6, Chloride Level 93L, Carbon Dioxide Level 25, Anion Gap 13, Blood Urea Nitrogen 67H, Creatinine 5.4H , Estimat Glomerular Filtration Rate , Glucose Level 56L, Calcium Level 7.4L, Total Bilirubin 2.7H, Direct Bilirubin 1.8H, Aspartate Amino Transf (AST/SGOT) 58H, Alanine Aminotransferase (ALT/SGPT) 23, Alkaline Phosphatase 213H, Total Protein 7.0, Albumin 2.0L, Globulin 5.0, Albumin/Globulin Ratio 0.4L Current Medications Medications (Trade) Dose Ordered Sig/Olayinka Route PRN Reason Start Time Stop Time Status Last Admin Dose Admin Acetaminophen (Tylenol) 650 mg Q6H PRN ORAL For Pain 09/05/18 18:45 10/05/18 18:44 09/08/18 01:22 Amlodipine Besylate (Norvasc) 5 mg DAILY ORAL 2/26/19 09:00 10/04/18 08:59 Aspirin (ASA) 81 mg DAILY ORAL 09/04/18 09:00 10/04/18 08:59 09/08/18 08:59 Atorvastatin Calcium (Lipitor) 10 mg BEDTIME ORAL 09/04/18 21:00 10/04/18 20:59 09/07/18 21:29 Bisacodyl (Dulcolax) 5 mg DAILYPRN PRN ORAL Constipation 09/08/18 02:00 10/08/18 01:59 09/08/18 03:28 Bisacodyl (Dulcolax) 10 mg DAILYPRN PRN RECTAL Constipation 09/08/18 02:00 10/08/18 01:59 Brimonidine Tartrate (Alphagan) 1 drop BID BOTH EYES 09/04/18 09:00 10/04/18 08:59 09/08/18 09:00 Cefepime HCl 500 mg/Dextrose 55 ml @ 110 mls/hr Q24H IV 09/05/18 20:00 09/12/18 19:59 09/07/18 20:24 Dextrose (Dextrose 50%) 25 ml Q30M PRN IV Hypoglycemia 09/04/18 07:45 10/04/18 07:44 Dextrose (Dextrose 50%) 50 ml Q30M PRN IV Hypoglycemia 09/04/18 07:45 10/04/18 07:44 09/06/18 01:35 Docusate Sodium (Colace) 250 mg DAILY ORAL 09/08/18 09:00 10/08/18 08:59 09/08/18 08:59 Fluticasone Propionate (Flonase) 1 spray TWICE A DAY NASAL 09/04/18 09:00 10/04/18 08:59 09/08/18 09:00 Heparin Sodium (Porcine) (Heparin 5000 units/ml) 5,000 units EVERY 12 HOURS SUBQ 09/04/18 09:00 10/04/18 08:59 09/05/18 20:37 Insulin Aspart (NovoLOG) NOVOLOG INSULIN BEFORE MEALS AND HS SUBQ 09/04/18 11:30 10/04/18 11:29 09/07/18 21:29 Latanoprost (Xalatan) 1 drop BID BOTH EYES 09/04/18 09:00 10/04/18 08:59 09/08/18 09:00 Levothyroxine Sodium (Synthroid) 100 mcg ACBREAKFAST ORAL 09/04/18 06:30 10/04/18 06:29 09/08/18 05:59 Patient Own Medication (Patient's Own Med) 1 ea DAILY ORAL 09/05/18 09:00 10/05/18 08:59 09/08/18 08:59 Repaglinide (Prandin) 2 mg TID ORAL 09/04/18 09:00 10/04/18 08:59 09/08/18 08:59 Vancomycin HCl (Vanco rx to dose) 1 ea DAILY PRN MISC Per rx protocol 09/05/18 10:45 10/05/18 10:44 Cristian Asher MD Sep 08, 2018 10:00
--- NOTE | 2018-09-08 10:17 | Diagnostic Imaging Report ---
EXAM: XR Chest, 1 View CLINICAL HISTORY: INFECT TECHNIQUE: Frontal view of the chest. COMPARISON: Chest x-ray dated 09/06/18 FINDINGS: Lungs: Pulmonary vascular congestion. Subsegmental atelectasis versus infiltrates in bilateral lung bases. Pleural space: Mild bilateral layering pleural effusions. Heart: Cardiomegaly. Mediastinum: Unremarkable. Bones/joints: Degenerative changes throughout the visualized spine and shoulder joints. Vasculature: Atherosclerotic calcifications within the aortic arch. Tubes, lines and devices: Telemetry leads overlie the thorax. IMPRESSION: 1. Mild bilateral layering pleural effusions. 2. Pulmonary vascular congestion. 3. Subsegmental atelectasis versus infiltrates in bilateral lung bases. 4. Cardiomegaly.
--- NOTE | 2018-09-08 11:13 | Nephrology Progress Note ---
Assessment/Plan Assessment 1. End-stage renal disease. 2. Anemia of chronic kidney disease. 3. Renal osteodystrophy. 4. Hypertension. 5. Diabetes. 6. sacral abscess . Plan continue iv antibiotic dialysis as schedule continue epogen PT/OT Subjective Subjective alert and awake Objective Objective Last 24 Hour Vital Signs Date Time Temp Pulse Resp B/P (MAP) Pulse Ox O2 Delivery O2 Flow Rate FiO2 09/08/18 08:00 97.7 80 24 92/55 (67) 98 09/08/18 08:00 80 09/08/18 08:00 Room Air 09/08/18 04:00 79 09/08/18 04:00 98.6 76 20 100/60 (73) 98 09/08/18 04:00 Room Air 09/08/18 00:00 98.7 75 20 147/74 (98) 98 09/08/18 00:00 85 09/08/18 00:00 Room Air 09/07/18 20:00 98.1 83 20 100/54 (69) 98 09/07/18 20:00 83 09/07/18 20:00 Room Air 09/07/18 16:00 Room Air 09/07/18 16:00 98.0 85 20 126/64 (84) 98 09/07/18 12:00 83 09/07/18 12:00 98.6 84 20 97/59 (72) 97 09/07/18 12:00 Room Air Intake and Output 09/07/18 09/08/18 19:00 07:00 Intake Total 510 ml 295 ml Balance 510 ml 295 ml Intake Oral 510 ml 240 ml IV Total 55 ml # Bowel Movements 1 Laboratory Tests 09/08/18 05:10: White Blood Count 11.4H, Red Blood Count 3.94L, Hemoglobin 12.3, Hematocrit 37.5 , Mean Corpuscular Volume 95, Mean Corpuscular Hemoglobin 31.1H, Mean Corpuscular Hemoglobin Concent 32.7, Red Cell Distribution Width 14.2, Platelet Count 52L, Mean Platelet Volume 9.8, Neutrophils (%) (Auto) , Lymphocytes (%) ( Auto) , Monocytes (%) (Auto) , Eosinophils (%) (Auto) , Basophils (%) (Auto) , Differential Total Cells Counted 100, Neutrophils % (Manual) 83H, Lymphocytes % (Manual) 11L, Monocytes % (Manual) 4, Eosinophils % (Manual) 2, Basophils % ( Manual) 0, Band Neutrophils 0, Platelet Estimate DecreasedL, Platelet Morphology Normal, Sodium Level 131L, Potassium Level 4.6, Chloride Level 93L, Carbon Dioxide Level 25, Anion Gap 13, Blood Urea Nitrogen 67H, Creatinine 5.4H , Estimat Glomerular Filtration Rate , Glucose Level 56L, Calcium Level 7.4L, Total Bilirubin 2.7H, Direct Bilirubin 1.8H, Aspartate Amino Transf (AST/SGOT) 58H, Alanine Aminotransferase (ALT/SGPT) 23, Alkaline Phosphatase 213H, Total Protein 7.0, Albumin 2.0L, Globulin 5.0, Albumin/Globulin Ratio 0.4L Height (Feet): 5 Height (Inches): 1.00 Weight (Pounds): 154 Objective EAD AND NECK: No JVP. No LAD. No thyromegaly. Extraocular movement intact. Pupils are reactive to light and accommodation. LUNGS: Decreased breathing sounds on both sides and also has crackles and rhonchi. CARDIAC: Regular rate and rhythm. S1 and S2. No murmur. No rub. ABDOMEN: Soft, nontender, and nondistended. EXTREMITIES: No edema. No clubbing. No cyanosis. Luann Kinsey MD Sep 08, 2018 11:13
--- NOTE | 2018-09-08 11:51 | Surgery Progress Note ---
Surgery Progress Note Subjective Symptoms: improved, tolerating diet, passing flatus Additional Comments pain improving. labs improving. Objective Last 24 Hour Vital Signs Date Time Temp Pulse Resp B/P (MAP) Pulse Ox O2 Delivery O2 Flow Rate FiO2 09/08/18 08:00 97.7 80 24 92/55 (67) 98 09/08/18 08:00 80 09/08/18 08:00 Room Air 09/08/18 04:00 79 09/08/18 04:00 98.6 76 20 100/60 (73) 98 09/08/18 04:00 Room Air 09/08/18 00:00 98.7 75 20 147/74 (98) 98 09/08/18 00:00 85 09/08/18 00:00 Room Air 09/07/18 20:00 98.1 83 20 100/54 (69) 98 09/07/18 20:00 83 09/07/18 20:00 Room Air 09/07/18 16:00 Room Air 09/07/18 16:00 98.0 85 20 126/64 (84) 98 09/07/18 12:00 83 09/07/18 12:00 98.6 84 20 97/59 (72) 97 09/07/18 12:00 Room Air I&O Intake and Output 09/07/18 09/08/18 19:00 07:00 Intake Total 510 ml 295 ml Balance 510 ml 295 ml Intake Oral 510 ml 240 ml IV Total 55 ml # Bowel Movements 1 Dressing: saturated Wound: clean Drains: none Cardiovascular: RSR Respiratory: clear Abdomen: soft, non-tender, non-distended Extremities: no cyanosis Laboratory Tests Test 09/08/18 05:10 White Blood Count 11.4 K/UL (4.8-10.8) H Red Blood Count 3.94 M/UL (4.20-5.40) L Hemoglobin 12.3 G/DL (12.0-16.0) Hematocrit 37.5 % (37.0-47.0) Mean Corpuscular Volume 95 FL (80-99) Mean Corpuscular Hemoglobin 31.1 PG (27.0-31.0) H Mean Corpuscular Hemoglobin Concent 32.7 G/DL (32.0-36.0) Red Cell Distribution Width 14.2 % (11.6-14.8) Platelet Count 52 K/UL (150-450) L Mean Platelet Volume 9.8 FL (6.5-10.1) Neutrophils (%) (Auto) % (45.0-75.0) Lymphocytes (%) (Auto) % (20.0-45.0) Monocytes (%) (Auto) % (1.0-10.0) Eosinophils (%) (Auto) % (0.0-3.0) Basophils (%) (Auto) % (0.0-2.0) Differential Total Cells Counted 100 Neutrophils % (Manual) 83 % (45-75) H Lymphocytes % (Manual) 11 % (20-45) L Monocytes % (Manual) 4 % (1-10) Eosinophils % (Manual) 2 % (0-3) Basophils % (Manual) 0 % (0-2) Band Neutrophils 0 % (0-8) Platelet Estimate Decreased L Platelet Morphology Normal Sodium Level 131 MMOL/L (136-145) L Potassium Level 4.6 MMOL/L (3.5-5.1) Chloride Level 93 MMOL/L (98-107) L Carbon Dioxide Level 25 MMOL/L (21-32) Anion Gap 13 mmol/L (5-15) Blood Urea Nitrogen 67 mg/dL (7-18) H Creatinine 5.4 MG/DL (0.55-1.30) H Estimat Glomerular Filtration Rate mL/min (>60) Glucose Level 56 MG/DL (74-106) L Calcium Level 7.4 MG/DL (8.5-10.1) L Total Bilirubin 2.7 MG/DL (0.2-1.0) H Direct Bilirubin 1.8 MG/DL (0.0-0.3) H Aspartate Amino Transf (AST/SGOT) 58 U/L (15-37) H Alanine Aminotransferase (ALT/SGPT) 23 U/L (12-78) Alkaline Phosphatase 213 U/L (46-116) H Total Protein 7.0 G/DL (6.4-8.2) Albumin 2.0 G/DL (3.4-5.0) L Globulin 5.0 g/dL Albumin/Globulin Ratio 0.4 (1.0-2.7) L Plan Problems: (1) Abscess of buttock, right Assessment & Plan: 83F with chronic right buttock abscess. 3cm x 4cm with raised induration and central fluctuance. warm, tender, erythema. no drainage. consent obtained from patient for I&D after all risks, benefits, and alteratives discussed. s/p I&D improving wound area improved packing and dressings helping -packing and dressing to right buttock wound TID -IV abx will follow with recs thank you (2) Sepsis Tavon Valencia Sep 08, 2018 11:51
[2018-09-08 12:00] VITALS: BP 121/69
--- NOTE | 2018-09-08 14:28 | Nephrology Progress Note ---
Assessment/Plan Assessment 1. End-stage renal disease. 2. Anemia of chronic kidney disease. 3. Renal osteodystrophy. 4. Hypertension. 5. Diabetes. 6. sacral abscess . Plan continue iv antibiotic dialysis as schedule continue epogen PT/OT Subjective Constitutional: Reports: no symptoms HEENT: Reports: no symptoms Genitourinary: Reports: no symptoms Neurologic/Psychiatric: Reports: no symptoms Subjective alert and awake on hemodialysis Objective Objective Last 24 Hour Vital Signs Date Time Temp Pulse Resp B/P (MAP) Pulse Ox O2 Delivery O2 Flow Rate FiO2 09/08/18 12:00 97.7 61 23 121/69 (86) 98 09/08/18 12:00 Room Air 09/08/18 12:00 74 09/08/18 08:00 97.7 80 24 92/55 (67) 98 09/08/18 08:00 80 09/08/18 08:00 Room Air 09/08/18 04:00 79 09/08/18 04:00 98.6 76 20 100/60 (73) 98 09/08/18 04:00 Room Air 09/08/18 00:00 98.7 75 20 147/74 (98) 98 09/08/18 00:00 85 09/08/18 00:00 Room Air 09/07/18 20:00 98.1 83 20 100/54 (69) 98 09/07/18 20:00 83 09/07/18 20:00 Room Air 09/07/18 16:00 Room Air 09/07/18 16:00 98.0 85 20 126/64 (84) 98 Intake and Output 09/07/18 09/08/18 19:00 07:00 Intake Total 510 ml 295 ml Balance 510 ml 295 ml Intake Oral 510 ml 240 ml IV Total 55 ml # Bowel Movements 1 Laboratory Tests 09/08/18 05:10: White Blood Count 11.4H, Red Blood Count 3.94L, Hemoglobin 12.3, Hematocrit 37.5 , Mean Corpuscular Volume 95, Mean Corpuscular Hemoglobin 31.1H, Mean Corpuscular Hemoglobin Concent 32.7, Red Cell Distribution Width 14.2, Platelet Count 52L, Mean Platelet Volume 9.8, Neutrophils (%) (Auto) , Lymphocytes (%) ( Auto) , Monocytes (%) (Auto) , Eosinophils (%) (Auto) , Basophils (%) (Auto) , Differential Total Cells Counted 100, Neutrophils % (Manual) 83H, Lymphocytes % (Manual) 11L, Monocytes % (Manual) 4, Eosinophils % (Manual) 2, Basophils % ( Manual) 0, Band Neutrophils 0, Platelet Estimate DecreasedL, Platelet Morphology Normal, Sodium Level 131L, Potassium Level 4.6, Chloride Level 93L, Carbon Dioxide Level 25, Anion Gap 13, Blood Urea Nitrogen 67H, Creatinine 5.4H , Estimat Glomerular Filtration Rate , Glucose Level 56L, Calcium Level 7.4L, Total Bilirubin 2.7H, Direct Bilirubin 1.8H, Aspartate Amino Transf (AST/SGOT) 58H, Alanine Aminotransferase (ALT/SGPT) 23, Alkaline Phosphatase 213H, Total Protein 7.0, Albumin 2.0L, Globulin 5.0, Albumin/Globulin Ratio 0.4L Height (Feet): 5 Height (Inches): 1.00 Weight (Pounds): 154 Objective EAD AND NECK: No JVP. No LAD. No thyromegaly. Extraocular movement intact. Pupils are reactive to light and accommodation. LUNGS: Decreased breathing sounds on both sides and also has crackles and rhonchi. CARDIAC: Regular rate and rhythm. S1 and S2. No murmur. No rub. ABDOMEN: Soft, nontender, and nondistended. EXTREMITIES: No edema. No clubbing. No cyanosis. Luann Kinsey MD Sep 08, 2018 14:28
--- NOTE | 2018-09-08 15:45 | Progress Note ---
DATE: 09/07/2018 INTERNAL MEDICINE PROGRESS NOTE SUBJECTIVE: The patient is status post I and D of her buttocks abscess yesterday. She is defervesced. Her pain is controlled. The packing was removed. A topical dressing is now placed. OBJECTIVE: VITAL SIGNS: Blood pressure 90/63, pulse 89, respirations 18. LUNGS: Clear. CARDIAC: Regular. Normal S1, S2. ABDOMEN: Soft. EXTREMITIES: No edema. LABORATORY DATA: Laboratories noted. IMPRESSION: 1. Staphylococcus aureus bacteremia with methicillin sensitive pathogen and source is likely a buttocks abscess, now status post I and D. 2. End-stage renal disease. 3. Pleural effusions, asymptomatic. 4. Hypothyroidism. 5. Hyperlipidemia. 6. Hypertensive heart disease. 7. Acute on chronic diastolic congestive heart failure. 8. Peripheral artery disease. PLAN: 1. Antimicrobials. 2. Wound care. 3. Hemodialysis with ultrafiltration. 4. Hold cardiovascular medications. 5. Volume support. 6. Antipyretics. 7. Mobilize with therapist. 8. Discharge planning. Garry Correia M.D. DR: QI JOB#: [id number] CC:
[2018-09-08 16:00] VITALS: BP 98/54
[2018-09-08] MEDS ORDERED: traMADol 50mg tab ORAL PRN (17:30)
--- NOTE | 2018-09-08 19:13 | NUR ---
NURSE NOTES: Report received from CHARO Anand. PAtient seen in bed , alert verbally responsive, able to make needs known. denies any pain at this time. AV shunt to right upper arm is intact, bruit and thrill present. IV site remains to left AC 22g and is intact. sp02 is 97% in room air. bed is in lowest position. Call light is within easy reach while in bed. Will continue to monitor.
--- NOTE | 2018-09-08 19:18 | NUR ---
HAND-OFF: Report given to CHARO Andrews. Stable condition.
[2018-09-08 20:00] VITALS: BP 98/49
[2018-09-08] MEDS: Cefepime HCl 500 MG in D5W 55 ML IV SCH (20:39)
[2018-09-09] VITALS: BP 99/55
[2018-09-09 04:00] VITALS: BP 93/64
--- NOTE | 2018-09-09 05:45 | Progress Note ---
DATE: 09/08/2018 INTERNAL MEDICINE PROGRESS NOTE SUBJECTIVE: The case was discussed with her son today by telephone, current medical issues and disposition were discussed. The patient's son concurs that a senior living facility would be optimal since the patient is not ambulatory at this time and needs wound care and no available caregiver provide, cannot meet those needs at this time at her home. OBJECTIVE: VITAL SIGNS: Blood pressure 98/54, pulse 86, respirations 22, afebrile. This is post hemodialysis. LUNGS: Clear. CARDIAC: Regular. Normal S1, S2. ABDOMEN: Soft. EXTREMITIES: No edema. Buttock site with dressing in place. LABORATORY DATA: White count 11, hemoglobin 12. Sodium 131, potassium 4.6, bicarbonate 25, BUN 67, creatinine 5.4. Albumin 2. IMPRESSION: 1. Bacteremia with MSSA. 2. Acute myocardial ischemia, resolved. 3. Severe protein-calorie malnutrition. 4. End-stage renal disease. 5. Buttocks abscess, status post I and D. 6. Low range blood pressure following hemodialysis. PLAN: 1. Continue antimicrobials. 2. Discontinue amlodipine. 3. Skin care. 4. Discharge planning is to senior living facility. Garry Correia M.D. DR: QI JOB#: [id number] CC:
[2018-09-09] MEDS: NovoLOG Insulin Flexpen SUBQ SCH ×3 (05:49→16:57)
--- NOTE | 2018-09-09 07:23 | NUR ---
HAND-OFF: Report given to CHARO Reed.
--- NOTE | 2018-09-09 07:49 | NUR ---
NURSE NOTES: Pt received from Juliana Rowland RN. Pt is awake, AAOx4 requesting breakfast. No cardiopulmonary distress noted. Pt on RA. Pt is on a renal cardiac diet. Pt voids on her own, valeriy pad dry with no urine or stool noted. R AV shunt noted on upper arm. L wrist 20g IB noted and patent. Skin alterations noted. Bed in lowest position, Call light within reach, side rails up x 3. Will continue to monitor pt.
[2018-09-09 08:00] VITALS: BP 105/65
[2018-09-09] MEDS: Latanoprost 0.005% Opth 2.5ml Soln BOTH EYES SCH ×2 (08:53→17:03)
[2018-09-09] MEDS: Brimonidine 0.2% Opth Sol BOTH EYES SCH ×2 (08:53→17:02)
[2018-09-09] MEDS: Docusate 250mg cap ORAL SCH (08:54)
[2018-09-09] MEDS: TRADJENTA 5 MG ORAL SCH (08:54)
[2018-09-09] MEDS: Aspirin Baby 81mg ORAL SCH (08:54)
[2018-09-09] MEDS: Flonase Nasal Inhaler 16gm NASAL SCH ×2 (08:54→17:07)
[2018-09-09] MEDS: Heparin 5000 units/ml inj SUBQ SCH (08:55)
[2018-09-09] MEDS: Repaglinide 1mg tab ORAL SCH ×3 (08:55→17:01)
--- NOTE | 2018-09-09 09:02 | Pulmonology Progress Note ---
Assessment/Plan Assessment/Plan IMPRESSION: 1. Right chest pleural effusion, suspect due to pulmonary edema/volume overload. 2. possible pneumonia. Agree with antibiotics. 3. ESRD on dialysis. 4. Diabetes mellitus. DISCUSSION: 1. Continue antibiotics. 2. Renal follow up 3. At this time, I will hold off on thoracentesis given her comfort level and lack of hypoxemia. 4. Surgical evaluation noted. 5. I will follow carefully. Cristian Asher M.D. Subjective Interval Events: Nonw new reported Constitutional: Reports: no symptoms HEENT: Repors: no symptoms Respiratory: Reports: no symptoms Cardiovascular: Reports: no symptoms Gastrointestinal/Abdominal: Reports: no symptoms Genitourinary: Reports: no symptoms Allergies: Coded Allergies: PENICILLINS (Verified Allergy, Intermediate, itching/rash., 10/23/14) CODEINE (Unverified Allergy, Unknown, 09/07/18) COPIED from uncoded section Uncoded Allergies: " some kind of antibiotic " (Allergy, Intermediate, generalized itching, ) Objective Last 24 Hour Vital Signs Date Time Temp Pulse Resp B/P (MAP) Pulse Ox O2 Delivery O2 Flow Rate FiO2 09/09/18 04:00 Room Air 09/09/18 04:00 98.4 82 24 93/64 (74) 96 09/09/18 03:32 83 09/09/18 00:00 98.4 87 24 99/55 (70) 97 09/09/18 00:00 Room Air 09/08/18 23:33 85 09/08/18 20:00 99.0 86 24 98/49 (65) 97 09/08/18 20:00 Room Air 09/08/18 19:30 83 09/08/18 16:00 Room Air 09/08/18 16:00 98.4 86 22 98/54 (69) 96 09/08/18 16:00 81 09/08/18 12:00 97.7 61 23 121/69 (86) 98 09/08/18 12:00 Room Air 09/08/18 12:00 74 Intake and Output 09/08/18 09/09/18 18:59 06:59 Intake Total 300 ml 175 ml Output Total 2000 ml 2000 ml Balance -1700 ml -1825 ml Intake Oral 300 ml 120 ml IV Total 55 ml Output Hemodialysis UF 2000 ml 2000 ml # Bowel Movements 2 General Appearance: no acute distress HEENT: normocephalic Respiratory/Chest: chest wall non-tender, lungs clear Cardiovascular: normal peripheral pulses, normal rate Abdomen: normal bowel sounds, soft, non tender Laboratory Tests 09/09/18 08:05: Random Vancomycin Level [Pending] Current Medications Medications (Trade) Dose Ordered Sig/Olayinka Route PRN Reason Start Time Stop Time Status Last Admin Dose Admin Acetaminophen (Tylenol) 650 mg Q6H PRN ORAL For Pain 09/05/18 18:45 10/05/18 18:44 09/08/18 01:22 Aspirin (ASA) 81 mg DAILY ORAL 09/04/18 09:00 10/04/18 08:59 09/09/18 08:54 Atorvastatin Calcium (Lipitor) 10 mg BEDTIME ORAL 09/04/18 21:00 10/04/18 20:59 09/08/18 20:38 Bisacodyl (Dulcolax) 5 mg DAILYPRN PRN ORAL Constipation 09/08/18 02:00 10/08/18 01:59 09/08/18 03:28 Bisacodyl (Dulcolax) 10 mg DAILYPRN PRN RECTAL Constipation 09/08/18 02:00 10/08/18 01:59 Brimonidine Tartrate (Alphagan) 1 drop BID BOTH EYES 09/04/18 09:00 10/04/18 08:59 09/09/18 08:53 Cefepime HCl 500 mg/Dextrose 55 ml @ 110 mls/hr Q24H IV 09/05/18 20:00 09/12/18 19:59 09/08/18 20:39 Dextrose (Dextrose 50%) 25 ml Q30M PRN IV Hypoglycemia 09/04/18 07:45 10/04/18 07:44 Dextrose (Dextrose 50%) 50 ml Q30M PRN IV Hypoglycemia 09/04/18 07:45 10/04/18 07:44 09/06/18 01:35 Docusate Sodium (Colace) 250 mg DAILY ORAL 09/08/18 09:00 10/08/18 08:59 09/09/18 08:54 Fluticasone Propionate (Flonase) 1 spray TWICE A DAY NASAL 09/04/18 09:00 10/04/18 08:59 09/09/18 08:54 Heparin Sodium (Porcine) (Heparin 5000 units/ml) 5,000 units EVERY 12 HOURS SUBQ 09/04/18 09:00 10/04/18 08:59 09/05/18 20:37 Insulin Aspart (NovoLOG) NOVOLOG INSULIN BEFORE MEALS AND HS SUBQ 09/04/18 11:30 10/04/18 11:29 09/08/18 17:12 Latanoprost (Xalatan) 1 drop BID BOTH EYES 09/04/18 09:00 10/04/18 08:59 09/09/18 08:53 Levothyroxine Sodium (Synthroid) 100 mcg ACBREAKFAST ORAL 09/04/18 06:30 10/04/18 06:29 09/09/18 05:49 Patient Own Medication (Patient's Own Med) 1 ea DAILY ORAL 09/05/18 09:00 10/05/18 08:59 09/09/18 08:54 Repaglinide (Prandin) 2 mg TID ORAL 09/04/18 09:00 10/04/18 08:59 09/09/18 08:55 Tramadol HCl (Ultram) 50 mg Q6H PRN ORAL pain 4-10 09/08/18 17:30 09/15/18 17:29 09/09/18 00:29 Vancomycin HCl (Vanco rx to dose) 1 ea DAILY PRN MISC Per rx protocol 09/05/18 10:45 10/05/18 10:44 Cristian Asher MD Sep 09, 2018 09:02
[2018-09-09] MEDS ORDERED: Tubing IV Secondary IV ONE ×2 (11:34→17:29)
[2018-09-09] MEDS ORDERED: NS 275ml ONE (11:34)
[2018-09-09 12:00] VITALS: BP 99/49
[2018-09-09] MEDS ORDERED: Vancomycin 500mg/D5W 110ml IVPB ONE ×2 (12:00)
--- NOTE | 2018-09-09 12:57 | NUR ---
CASE MANAGEMENT:REVIEW 09/09/2018 SI: SEPSIS. ABSCESS OF RT BUTTOCK ESRD ON HD T 98 HR 83 RR 23 B/P 105/65 SATS 99% ON RA NO LABS TODAY IS: IV CEFEPIME Q24H LIPITOR PO QHS NORVASC PO QD ASA PO QD PRANDIN PO TID HEPARIN SUBQ Q12H SYNTHROID PO QAM : STEP DOWN UNIT DCP: PATIENT IS FROM HOME BUT MAY BENEFIT FROM SNF PLACEMENT UPON DISCHARGE PLAN: WOUND PACKING AND DRESSING TO RT BUTTOCK
--- NOTE | 2018-09-09 13:03 | Surgery Progress Note ---
Surgery Progress Note Subjective Additional Comments No acute events. more comfortable. wound improving without signs of active infection Objective Last 24 Hour Vital Signs Date Time Temp Pulse Resp B/P (MAP) Pulse Ox O2 Delivery O2 Flow Rate FiO2 09/09/18 12:00 98.1 77 22 99/49 (66) 93 09/09/18 08:00 84 09/09/18 08:00 Room Air 09/09/18 08:00 98.0 83 23 105/65 (78) 99 09/09/18 04:00 Room Air 09/09/18 04:00 98.4 82 24 93/64 (74) 96 09/09/18 03:32 83 09/09/18 00:00 98.4 87 24 99/55 (70) 97 09/09/18 00:00 Room Air 09/08/18 23:33 85 09/08/18 20:00 99.0 86 24 98/49 (65) 97 09/08/18 20:00 Room Air 09/08/18 19:30 83 09/08/18 16:00 Room Air 09/08/18 16:00 98.4 86 22 98/54 (69) 96 09/08/18 16:00 81 I&O Intake and Output 09/08/18 09/09/18 19:00 07:00 Intake Total 300 ml 175 ml Output Total 2000 ml 2000 ml Balance -1700 ml -1825 ml Intake Oral 300 ml 120 ml IV Total 55 ml Output Hemodialysis UF 2000 ml 2000 ml # Bowel Movements 2 Dressing: saturated Wound: clean, other Drains: none Cardiovascular: RSR Respiratory: clear Abdomen: soft, flat, non-tender, non-distended Extremities: no tenderness, no cyanosis, other Laboratory Tests Test 09/09/18 08:05 Random Vancomycin Level 14.6 ug/mL Plan Problems: (1) Abscess of buttock, right Assessment & Plan: 83F with chronic right buttock abscess. 3cm x 4cm with raised induration and central fluctuance. warm, tender, erythema. no drainage. consent obtained from patient for I&D after all risks, benefits, and alteratives discussed. s/p I&D improving wound area improved packing and dressings helping -packing and dressing to right buttock wound TID -IV abx will follow with recs thank you (2) Sepsis Tavon Valencia Sep 09, 2018 13:03
--- NOTE | 2018-09-09 14:11 | Infectious Diseases Prog Note ---
Assessment/Plan Assessment/Plan ASSESSMENT AND PLAN: 1. staph aureus bacteremia/mssa, right buttock abscess is likely source, sepsis , leukocytosis, ? pna vs edema - iv vancomycin x 3 weeks with pharmacy dosing and hd, cefepime x 3 days - s/p I/D right buttock abscess - check sputum culture, labs and chest x-ray - surveillance blood cultures negative - TTE without discrete vegetation - sacral wound culture with e.coli and retail merchandiser likely colonizer, continue local wound care - communicated with Dr. Correia 2. End-stage renal disease. Hemodialysis. 3. Hyperlipidemia. 4. Hypothyroidism. 5. Diabetes. 6. Hypertension. 7. Blood sugar, blood pressure treatment per primary for hypertension and diabetes. 8. Right arm fistula. 9. Peripheral artery disease. 10. Anemia of chronic kidney disease. 11. Renal osteodystrophy. 12. Allergy to codeine, penicillin, tolerates cefepime. 13. Social history negative. 14. Family history noncontributory. 15. MAR was noted. 16. Case discussed with RN. 17. Continue treatment per primary consultants. Subjective Constitutional: Denies: fever HEENT: Denies: congestion Respiratory: Denies: shortness of breath Cardiovascular: Denies: chest pain Gastrointestinal/Abdominal: Denies: nausea, vomiting, diarrhea Genitourinary: Reports: other - no caba Neurologic: Denies: headache Psychiatric: Denies: depression Skin: Denies: rash Musculoskeletal: Denies: pain Allergies: Coded Allergies: PENICILLINS (Verified Allergy, Intermediate, itching/rash., 10/23/14) CODEINE (Unverified Allergy, Unknown, 09/07/18) COPIED from uncoded section Uncoded Allergies: " some kind of antibiotic " (Allergy, Intermediate, generalized itching, ) Objective Vital Signs Last 24 Hour Vital Signs Date Time Temp Pulse Resp B/P (MAP) Pulse Ox O2 Delivery O2 Flow Rate FiO2 09/09/18 12:00 98.1 77 22 99/49 (66) 93 09/09/18 12:00 Room Air 09/09/18 08:00 84 09/09/18 08:00 Room Air 09/09/18 08:00 98.0 83 23 105/65 (78) 99 09/09/18 04:00 Room Air 09/09/18 04:00 98.4 82 24 93/64 (74) 96 09/09/18 03:32 83 09/09/18 00:00 98.4 87 24 99/55 (70) 97 09/09/18 00:00 Room Air 09/08/18 23:33 85 09/08/18 20:00 99.0 86 24 98/49 (65) 97 09/08/18 20:00 Room Air 09/08/18 19:30 83 09/08/18 16:00 Room Air 09/08/18 16:00 98.4 86 22 98/54 (69) 96 09/08/18 16:00 81 Height (Feet): 5 Height (Inches): 1.00 Weight (Pounds): 153 General Appearance: no acute distress HEENT: normocephalic, atraumatic, anicteric, mucous membranes moist Respiratory/Chest: crackles/rales, rhonchi - bilaterally Cardiovascular: normal rate, regular rhythm, no gallop/murmur, no JVD Abdomen: normal bowel sounds, soft, non tender, no organomegaly, non distended Genitourinary: other - + caba Extremities: no cyanosis Skin: no rash Neurologic/Psychiatric: restaurant line server II-XII grossly normal, alert, responsive Lymphatic: no neck adenopathy Musculoskeletal: no effusion Objective 09/06/18 - chest x-ray - Procedure: XRAY Chest 1v Indication: Shortness of breath Technique: One view of the chest Comparison: 09/04/2018 Findings: There is increased pleural fluid on the right. There may be increased parenchymal consolidation as well. Patchy atelectasis and consolidation in the left perihilar region persists, unchanged. Cardiomegaly persists. Impression: Increasing right-sided pleural effusion and possibly underlying parenchymal disease, over 2 days, as described Chest x-ray - 09/08/18 - IMPRESSION: 1. Mild bilateral layering pleural effusions. 2. Pulmonary vascular congestion. 3. Subsegmental atelectasis versus infiltrates in bilateral lung bases. 4. Cardiomegaly. Microbiology Date/Time Source Procedure Growth Status 09/06/18 03:25 Blood Blood Culture - Preliminary NO GROWTH AFTER 48 HOURS Resulted 09/04/18 05:30 Wound Gram Stain - Final Complete 09/04/18 05:30 Wound Culture - Final Escherichia Coli Staphylococcus Sp Coag Neg Enterococcus Species Complete 09/04/18 01:02 Nasal Nares Influenza Types A,B Antigen (AYSHA) - Final Complete 09/04/18 00:40 Rectum - Final NO CARBAPENEM-RESISTANT ENTEROBACTERI... Complete Labs Test 09/07/18 05:47 09/08/18 05:10 09/09/18 08:05 White Blood Count 12.9 K/UL (4.8-10.8) 11.4 K/UL (4.8-10.8) Red Blood Count 3.32 M/UL (4.20-5.40) 3.94 M/UL (4.20-5.40) Hemoglobin 10.7 G/DL (12.0-16.0) 12.3 G/DL (12.0-16.0) Hematocrit 31.8 % (37.0-47.0) 37.5 % (37.0-47.0) Mean Corpuscular Volume 96 FL (80-99) 95 FL (80-99) Mean Corpuscular Hemoglobin 32.1 PG (27.0-31.0) 31.1 PG (27.0-31.0) Mean Corpuscular Hemoglobin Concent 33.5 G/DL (32.0-36.0) 32.7 G/DL (32.0-36.0) Red Cell Distribution Width 14.2 % (11.6-14.8) 14.2 % (11.6-14.8) Platelet Count 39 K/UL (150-450) 52 K/UL (150-450) Mean Platelet Volume 11.9 FL (6.5-10.1) 9.8 FL (6.5-10.1) Neutrophils (%) (Auto) % (45.0-75.0) % (45.0-75.0) Lymphocytes (%) (Auto) % (20.0-45.0) % (20.0-45.0) Monocytes (%) (Auto) % (1.0-10.0) % (1.0-10.0) Eosinophils (%) (Auto) % (0.0-3.0) % (0.0-3.0) Basophils (%) (Auto) % (0.0-2.0) % (0.0-2.0) Differential Total Cells Counted 100 100 Neutrophils % (Manual) 82 % (45-75) 83 % (45-75) Lymphocytes % (Manual) 11 % (20-45) 11 % (20-45) Monocytes % (Manual) 7 % (1-10) 4 % (1-10) Eosinophils % (Manual) 0 % (0-3) 2 % (0-3) Basophils % (Manual) 0 % (0-2) 0 % (0-2) Band Neutrophils 0 % (0-8) 0 % (0-8) Platelet Estimate Decreased Decreased Platelet Morphology Normal Normal Polychromasia 1+ Hypochromasia 1+ Sodium Level 131 MMOL/L (136-145) 131 MMOL/L (136-145) Potassium Level 4.3 MMOL/L (3.5-5.1) 4.6 MMOL/L (3.5-5.1) Chloride Level 95 MMOL/L (98-107) 93 MMOL/L (98-107) Carbon Dioxide Level 25 MMOL/L (21-32) 25 MMOL/L (21-32) Anion Gap 11 mmol/L (5-15) 13 mmol/L (5-15) Blood Urea Nitrogen 47 mg/dL (7-18) 67 mg/dL (7-18) Creatinine 4.5 MG/DL (0.55-1.30) 5.4 MG/DL (0.55-1.30) Estimat Glomerular Filtration Rate mL/min (>60) mL/min (>60) Glucose Level 136 MG/DL (74-106) 56 MG/DL (74-106) Calcium Level 7.6 MG/DL (8.5-10.1) 7.4 MG/DL (8.5-10.1) Total Bilirubin 2.4 MG/DL (0.2-1.0) 2.7 MG/DL (0.2-1.0) Direct Bilirubin 1.7 MG/DL (0.0-0.3) 1.8 MG/DL (0.0-0.3) Aspartate Amino Transf (AST/SGOT) 57 U/L (15-37) 58 U/L (15-37) Alanine Aminotransferase (ALT/SGPT) 24 U/L (12-78) 23 U/L (12-78) Alkaline Phosphatase 197 U/L (46-116) 213 U/L (46-116) Total Protein 7.2 G/DL (6.4-8.2) 7.0 G/DL (6.4-8.2) Albumin 2.2 G/DL (3.4-5.0) 2.0 G/DL (3.4-5.0) Globulin 5.0 g/dL 5.0 g/dL Albumin/Globulin Ratio 0.4 (1.0-2.7) 0.4 (1.0-2.7) Random Vancomycin Level 14.6 ug/mL Laboratory Tests Test 09/09/18 08:05 Random Vancomycin Level 14.6 ug/mL Current Medications Medications (Trade) Dose Ordered Sig/Olayinka Route PRN Reason Start Time Stop Time Status Last Admin Dose Admin Acetaminophen (Tylenol) 650 mg Q6H PRN ORAL For Pain 09/05/18 18:45 10/05/18 18:44 09/08/18 01:22 Aspirin (ASA) 81 mg DAILY ORAL 09/04/18 09:00 10/04/18 08:59 09/09/18 08:54 Atorvastatin Calcium (Lipitor) 10 mg BEDTIME ORAL 09/04/18 21:00 10/04/18 20:59 09/08/18 20:38 Bisacodyl (Dulcolax) 5 mg DAILYPRN PRN ORAL Constipation 09/08/18 02:00 10/08/18 01:59 09/08/18 03:28 Bisacodyl (Dulcolax) 10 mg DAILYPRN PRN RECTAL Constipation 09/08/18 02:00 10/08/18 01:59 Brimonidine Tartrate (Alphagan) 1 drop BID BOTH EYES 09/04/18 09:00 10/04/18 08:59 09/09/18 08:53 Cefepime HCl 500 mg/Dextrose 55 ml @ 110 mls/hr Q24H IV 09/05/18 20:00 09/12/18 19:59 09/08/18 20:39 Dextrose (Dextrose 50%) 25 ml Q30M PRN IV Hypoglycemia 09/04/18 07:45 10/04/18 07:44 Dextrose (Dextrose 50%) 50 ml Q30M PRN IV Hypoglycemia 09/04/18 07:45 10/04/18 07:44 09/06/18 01:35 Docusate Sodium (Colace) 250 mg DAILY ORAL 09/08/18 09:00 10/08/18 08:59 09/09/18 08:54 Fluticasone Propionate (Flonase) 1 spray TWICE A DAY NASAL 09/04/18 09:00 10/04/18 08:59 09/09/18 08:54 Heparin Sodium (Porcine) (Heparin 5000 units/ml) 5,000 units EVERY 12 HOURS SUBQ 09/04/18 09:00 10/04/18 08:59 09/05/18 20:37 Insulin Aspart (NovoLOG) NOVOLOG INSULIN BEFORE MEALS AND HS SUBQ 09/04/18 11:30 10/04/18 11:29 09/09/18 11:39 Latanoprost (Xalatan) 1 drop BID BOTH EYES 09/04/18 09:00 10/04/18 08:59 09/09/18 08:53 Levothyroxine Sodium (Synthroid) 100 mcg ACBREAKFAST ORAL 09/04/18 06:30 10/04/18 06:29 09/09/18 05:49 Patient Own Medication (Patient's Own Med) 1 ea DAILY ORAL 09/05/18 09:00 10/05/18 08:59 09/09/18 08:54 Repaglinide (Prandin) 2 mg TID ORAL 09/04/18 09:00 10/04/18 08:59 09/09/18 13:02 Tramadol HCl (Ultram) 50 mg Q6H PRN ORAL pain 4-10 09/08/18 17:30 09/15/18 17:29 09/09/18 00:29 Vancomycin HCl (Vanco rx to dose) 1 ea DAILY PRN MISC Per rx protocol 09/05/18 10:45 10/05/18 10:44 Cristopher Helton MD Sep 09, 2018 14:11
--- NOTE | 2018-09-09 14:45 | NUR ---
DISCHARGE DISPOSITION: PLEASE READ PATIENT TO BE DISCHARGED TO [facility] [address] [facility] [address] T: [phone]>>> CALL JENN FOR REPORT SHEREEN ETA 1730 HD INFO REFAXED TO [facility] ATTN: MARIANNE (CHRISTY) MAKING HER AWARE OF THE HD CHAIR TIME. SEE DC PLANNING NOTE. CLINICALS WERE FAXED PREVIOUSLY DURING THE WEEK. TRANSFER REPORT TO BE PROVIDED. Addendum: 09/09/18 at 1515 by Vicki Gardner CM AUTH PROVIDED VIA TELEPHONE. TRACKING/AUTH NUMBER IS [id number] SCREENSHOT OF AUTH TO BE FAXED TO MARIANNE. AUTH NUMBER PROVIDED TO MARIANNE. SHE IS ACCEPTING THIS PATIENT MARIANNE STATED THAT SHE CAN CALL TOMORROW TO OBTAIN A HARDCOPY FROM INSURANCE IF SHE SCREENSHOT IS NOT OBTAINED. ROOM CHANGED TO 23B
--- NOTE | 2018-09-09 14:52 | Nephrology Progress Note ---
Assessment/Plan Assessment 1. End-stage renal disease. 2. Anemia of chronic kidney disease. 3. Renal osteodystrophy. 4. Hypertension. 5. Diabetes. 6. sacral abscess . Plan continue iv antibiotic dialysis as schedule continue epogen PT/OT Subjective Subjective alert and awake on hemodialysis Objective Objective Last 24 Hour Vital Signs Date Time Temp Pulse Resp B/P (MAP) Pulse Ox O2 Delivery O2 Flow Rate FiO2 09/09/18 12:00 98.1 77 22 99/49 (66) 93 09/09/18 12:00 Room Air 09/09/18 08:00 84 09/09/18 08:00 Room Air 09/09/18 08:00 98.0 83 23 105/65 (78) 99 09/09/18 04:00 Room Air 09/09/18 04:00 98.4 82 24 93/64 (74) 96 09/09/18 03:32 83 09/09/18 00:00 98.4 87 24 99/55 (70) 97 09/09/18 00:00 Room Air 09/08/18 23:33 85 09/08/18 20:00 99.0 86 24 98/49 (65) 97 09/08/18 20:00 Room Air 09/08/18 19:30 83 09/08/18 16:00 Room Air 09/08/18 16:00 98.4 86 22 98/54 (69) 96 09/08/18 16:00 81 Intake and Output 09/08/18 09/09/18 19:00 07:00 Intake Total 300 ml 175 ml Output Total 2000 ml 2000 ml Balance -1700 ml -1825 ml Intake Oral 300 ml 120 ml IV Total 55 ml Output Hemodialysis UF 2000 ml 2000 ml # Bowel Movements 2 Laboratory Tests 09/09/18 08:05: Random Vancomycin Level 14.6 Height (Feet): 5 Height (Inches): 1.00 Weight (Pounds): 153 Objective EAD AND NECK: No JVP. No LAD. No thyromegaly. Extraocular movement intact. Pupils are reactive to light and accommodation. LUNGS: Decreased breathing sounds on both sides and also has crackles and rhonchi. CARDIAC: Regular rate and rhythm. S1 and S2. No murmur. No rub. ABDOMEN: Soft, nontender, and nondistended. EXTREMITIES: No edema. No clubbing. No cyanosis. Bahmani,Luann MD Sep 09, 2018 14:52
--- NOTE | 2018-09-09 15:59 | NUR ---
NURSE NOTES: Report given to Rodo from [facility] over phone. ETA 1730.
[2018-09-09 16:00] VITALS: BP 95/50
[2018-09-09] MEDS ORDERED: NS 500ML ONE (17:29)
--- NOTE | 2018-09-09 18:56 | NUR ---
NURSE NOTES Pt d/c to [facility] via ambulance accompanied w/ EMT personnel. Report given to CHARO Koehler from [facility]. Pt in stable condition, alert and oriented w/ periods of confusion, verbally responsive, denies pain at this time. No cardiopulmonary distress noted on RA. 20g Left wrist IV intact and patent kept at d/c for IV scheduled ABX. skin assessment completed and pictures uploaded. Belongings and home meds given to patient's sister to take home. VS stable. account adjuster and ID band removed prior to d/c. Family members at bed side during transfer.
--- NOTE | 2018-09-11 09:36 | Discharge Summary ---
Discharge Summary Discharge Summary _ DATE OF ADMISSION: 09/04/2018 DATE OF DISCHARGE: 09/09/2018 DISCHARGED BY: REASON FOR ADMISSION: 83 years old female with past medical history of end-stage renal disease on hemodialysis, renal osteodystrophy, hypertension, diabetes mellitus type 2, anemia of chronic kidney disease, peripheral arterial disease, presented to emergency department with generalized weakness , increased fatigue and nonproductive cough. Her symptoms prevented her from going to dialysis. She denied fever and chills. Laboratory workup revealed leukocytosis WBC 15.6. Albumin 2.4. Troponin - 0.194. Pro BNP 27,000. EKG revealed normal sinus rhythm, no acute ischemic changes. BUN 79, creatinine 6, consistent with known history of end-stage renal disease Lactic acid 1.1. Glucose 477 Chest x-ray revealed congestive heart failure, moderate to large right pleural effusion, cardiomegaly. Patient admitted to stepdown unit for further management CONSULTANTS: bridge engineer Dr. Asher ID specialist hair clipper power Dr. [facility] Dr. Valencia [facility] COURSE: Patient admitted to direct observational unit and started on empiric antibiotics. Hemodialysis provided as per hair clipper power recommendations with close monitoring of volumes and cardiorenal parameters. Supplemental oxygen provided as needed to keep pulse oximetry above 92%. Pulmonary toilet provided. Regional Business Development Manager followed. Regional Business Development Manager recommended to hold off on thoracentesis given her comfort level and lack of hypoxemia. Per bridge engineer right chest pleural effusion was likely due to pulmonary edema /volume overload. Second troponin was trending down 0.179. Echocardiogram revealed global left ventricular hypokinesis with reduced ejection fraction of 20-25% and mild left ventricular hypertrophy. No discrete vegetation was seen. Moderate mitral regurgitation. Moderately elevated left atrial pressure, grade 2. Right ventricular systolic pressure of 68 , consistent with severe pulmonary hypertension. EKG revealed no acute ischemic changes. Per seed production field supervisor patient had acute myocardial ischemia . Blood pressure was initially low. All antihypertensive medications were discontinued. Antiplatelet therapy with aspirin and statin were continued. DVT prophylaxis provided. Blood pressure was closely monitored. Albumin boluses provided for blood pressure support. At this time all antihypertensive medication discontinued. Patient will be closely monitored in the assisted facility for initiation of anti-failure regimen as blood pressure allows. Infectious disease doctor closely followed. Initial blood culture revealed Staphylococcus aureus. Repeated blood culture on 09/06 were negative. Rapid influenza screen test was negative. Wound culture revealed E. coli , Staphylococcus coagulase negative and and enterococci species. Antibiotic provided as per ID specialist recommendation. Surgeon closely followed. Patient undergone I&D of the right buttock abscess. Wound care provided as per surgeon recommendation. Wound care to be continued at the assisted facility. Patient will need to continue IV vancomycin with pharmacy dosing per renal failure for 3 weeks as per infectious disease doctor recommendation. Patient also will need to complete a course of cefepime for possible pneumonia. Leukocytosis trending down. Patient remains afebrile. Hemoglobin and hematocrit were closely monitored with goal to keep hemoglobin above 7. Epogen was continued. Renal parameters and electrolytes were closely monitored. Electrolytes corrected as needed as per hair clipper power recommendation. Supportive care provided. Pain management was addressed as needed. Bowel regimen instituted. Blood sugar was managed with sliding scale of insulin. Levothyroxine was continued. Water Pollution Specialist recommendation regarding protein supplements, implemented in plan of care. Patient will need close monitoring of blood pressure in the facility and continue with IV antibiotics to complete the course. Patient clinically stabilized and was [facility]. FINAL DIAGNOSES: Sepsis with Staph aureus bacteremia Shock-resolved Staphylococcus aureus bacteremia/MSSA - likely due to right buttock abscess Abscess of right buttock, status post I&D Possible pneumonia End-stage renal disease, on hemodialysis Right chest pleural effusion, likely due to pulmonary edema/volume overload Hypertensive heart disease-currently hypotensive Diabetes mellitus with hyperglycemia Acute myocardial ischemia -resolved Cardiomyopathy , EF 20-25% Severe pulmonary hypertension Moderate mitral regurgitation Acute on chronic diastolic congestive heart failure Possible abscess right buttock Severe protein calorie malnutrition Hypothyroidism Hyperlipidemia Peripheral arterial artery disease Anemia of chronic renal disease DISCHARGE MEDICATIONS: List of medication was sent to accepting facility DISCHARGE INSTRUCTIONS: Patient was discharged to the assisted facility. Follow up with medical doctor at the facility. I have been assigned to dictate discharge summary for this account. I was not involved in the patient's management. Ruth Dahl NP Sep 11, 2018 09:36
== END 2018-09-09 19:04 | DRG 871 ==
LOC: EDBD 00:44 → EMR 00:54 → 2W 02:55 → EDBEDREQ 03:05 → SDSOVERFLO 09-06 10:06 → 2W 09-06 10:09
PROC: 5A1D70Z Performance of Urinary Filtration, Intermittent, Less than 6 Hours Per Day (ICD-10-PCS; principal; 2018-09-04)
PROC: 0Y903ZZ Drainage of Right Buttock, Percutaneous Approach (ICD-10-PCS; 2018-09-06)
DX: A41.01 Sepsis due to Methicillin susceptible Staphylococcus aureus (principal); N18.6 End stage renal disease; J18.9 Pneumonia, unspecified organism; I50.33 Acute on chronic diastolic (congestive) heart failure; E43 Unspecified severe protein-calorie malnutrition; I13.2 Hypertensive heart and chronic kidney disease with heart failure and with stage 5 chronic kidney disease, or end stage renal disease; L02.31 Cutaneous abscess of buttock; R57.9 Shock, unspecified; I42.9 Cardiomyopathy, unspecified; Z99.2 Dependence on renal dialysis; D63.1 Anemia in chronic kidney disease; I11.0 Hypertensive heart disease with heart failure; E11.22 Type 2 diabetes mellitus with diabetic chronic kidney disease; E11.65 Type 2 diabetes mellitus with hyperglycemia; I51.3 Intracardiac thrombosis, not elsewhere classified; I27.20 Pulmonary hypertension, unspecified; I34.0 Nonrheumatic mitral (valve) insufficiency; E03.9 Hypothyroidism, unspecified; E78.5 Hyperlipidemia, unspecified; I73.9 Peripheral vascular disease, unspecified; Z88.6 Allergy status to analgesic agent; Z88.0 Allergy status to penicillin; N25.0 Renal osteodystrophy; I73.00 Raynaud's syndrome without gangrene
CPT/HCPCS: 36415; 71045; 80053; 80202; 82248; 82550; 82553; 82962; 83605; 83690; 83880; 84484; 85007; 85025; 86710; 87040; 87070; 87081; 87181; 87205; 93005; 93306; 96361; 96365; 96375; 99291; J1815